=== PATIENT | female | born 1940 | race Caucasian/White ===

== ENCOUNTER 2018-01-20 09:05 | Inpatient (IN) ==
[~2018-01-20 09:05] MED LIST: Bacitracin 50,000 UNIT, Polymyxin B Sulfate 500,000 UNIT, Sodium Chloride IRRigation 1,... IR ONE
[2018-01-20] MEDS ORDERED: Albuterol 2.5 MG/3 ML NEBULIZER IH ONE (09:28)
[2018-01-20] MEDS ORDERED: CeFAZolin Syr 2,000MG/20 ML 2,000 MG/20 ML SYRINGE IVPB ONE (09:28)
[2018-01-20] MEDS ORDERED: Ondansetron 4 MG/2 ML VIAL ONE (09:29)
[2018-01-20] MEDS ORDERED: *HR* Propofol 200 MG/20 ML VIAL IVP ONE (09:29)
[2018-01-20] MEDS ORDERED: *HR* Succinylcholine 200 MG/10 ML VIAL IVP ONE (09:29)
[2018-01-20] MEDS ORDERED: Lidocaine -MPF 2% 2 ML VIAL ONE (09:29)
[2018-01-20] MEDS ORDERED: Dexamethasone 4 MG/ML VIAL ONE (09:29)
[2018-01-20] MEDS ORDERED: Ringers Solution, Lactated 1,000 ML IVC SCH (09:30)
[2018-01-20] MEDS ORDERED: Albuterol 2.5 MG/3 ML NEBULIZER ONE (09:34)
--- NOTE | 2018-01-20 09:34 | Anesthesia Evaluation PreOp ---
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: Other (spondlolisthesis, lumbar stenosis/radiculopathy (LLE affected - pain/numbness/weakness), chronic back [place]) Other Medical History: GERD, Other (osteoporosis) Anesthesia History: No Prior Anesthetic Complications Alcohol Use: none Drug use: none Medications and Allergies Erythromycin OPTH Oint 1 appl LEFT EYE QID 5 Days tube 04/20/17 [Rx] 3 Allergy/AdvReac Type Severity Reaction Status Date / Time No Known Allergies Allergy Verified 01/14/18 13:36 - Meds/Allergy Pre-op Review Medications Reviewed: Yes Allergies Reviewed: Yes Beta Blockers on Current Med List: No Anesthesia Results - Labs Laboratory Tests 01/14/18 01/14/18 01/14/18 13:36 13:36 13:36 WBC 6.6 Hgb 12.6 Hct 39.7 Plt Count 352 PT 11.0 INR 1.0 APTT 30.1 Sodium 140 Potassium Chloride 107 Carbon Dioxide 25 BUN 5 L Creatinine 0.74 Est GFR ( Amer) > 60 Est GFR (Non-Af Amer) > 60 BUN/Creatinine Ratio 7 01/16/18 12:19 WBC Hgb Hct Plt Count PT INR APTT Sodium Potassium 4.6 Chloride Carbon Dioxide BUN Creatinine Est GFR ( Amer) Est GFR (Non-Af Amer) BUN/Creatinine Ratio Anesthesia Exam Weight: 70 kg - HEENT Pupil (Motor): Pupils equal, EOMI Mallampati: III Teeth: Missing, Poor dentition (caps on left upper incisor, etc) Oral Opening: Greater than 3 - [employer] OPERATOR LOC: Oriented [employer] OPERATOR Motor: Deficit LLE [employer]ANT OPERATOR Sensory: Deficit: LLE - Cardiac Rhythm: Regular Murmur: None - Pulmonary Breath Sounds: bilateral Clear Respiratory Effort: Symmetrical Anesthesia Assess/Plan ASA Score: 3 Modified Jackie Scale for Level of Consciousness: Cooperative, oriented, and tranquil Anesthetic Plan: General Monitoring Plan: Standard Monitors Recovery Plan: PACU
[2018-01-20] MEDS ORDERED: 0.9 % Sodium Chloride Mini Bag 200 ML ONE (09:56)
[2018-01-20] MEDS ORDERED: *HR* Remifentanil 2 MG VIAL IVP ONE (10:10)
[2018-01-20] MEDS ORDERED: *HR* Phenylephrine 10 MG/ML VIAL ONE (10:10)
--- NOTE | 2018-01-20 11:02 | History & Physical Report ---
Date of Encounter: 01/20/18 Time of Encounter: 11:02 24 Hour HP Update - Instructions Instructions: If the History and Physical is less than 30 days old and was completed prior to A.M. admission and or procedure and has NOT been updated on calendar day of procedure please complete this update prior to performing procedure. - Update Patient reports changes in Medical Condition: No Changes in examination, assessment, or condition: No Changes in Medication: No Preop tests/diagnostics Reviewed: Yes Pre-Op MRSA Screen: Negative Surgery Remains Indicated: Yes Consent for Planned Operative Procedure(s) Verified: Yes - Pre-Operative Checklist Preoperative Checklist Indicated: No Prophylactic Antibiotic Ordered: Yes Home Medications Include Beta Alan: No Beta Alan Taken Today (Day of Surgery): No Beta Alan Taken Yesterday (Day Prior to Surgery): No Is VTE Prophylaxis Indicated?: Yes
[2018-01-20] MEDS ORDERED: *HR* FentaNYL (PF) 100 MCG/2 ML VIAL ONE (11:22)
[2018-01-20] MEDS ORDERED: *HR* PHENYLEPHRINE 1,000 MCG/10 ML SYRINGE IVP ONE (11:55)
[2018-01-20] MEDS ORDERED: *HR* Promethazine 25 MG/ML VIAL IVP PRN (12:46)
--- NOTE | 2018-01-20 15:05 | Orthopedic Operative Note ---
Date of procedure: 01/20/18 Pre-op diagnosis: Spondylolisthesis, lumbar stenosis, lumbar radiculopathy Post-op diagnosis: same Operation/Findings: Posterior lumbar interbody fusion L3-L5: The patient successfully underwent general endotracheal anesthesia. The patient was given antibiotics prior to the start of the procedure. Compression boots and stockings were used for deep vein thrombosis prophylaxis. A Noriega catheter was placed. Leads for neuro monitoring were placed on the upper and lower extremities. This included the cranium. The neuro monitoring personnel confirmed there were satisfactory readings prior to the start of the procedure. The patient was turned prone on the Wilder table. The back was prepped and draped in the usual sterile fashion. An incision was was marked and centered over the involved L3-L5 levels in the mid line. The incision was deepened through the lumbar fascia. Bovie cautery and Cutler elevators were used to reflect the paraspinal musculature at the lateral extent of the transverse processes of the involved L3 , L4, and L5 levels. Rosemary clamps were placed over the L4 and L5 spinous processes. An intraoperative lateral fluoroscopy graft was obtained. A conversation was held between the surgeon and radiologist and both confirmed we had the correct operative levels. We then placed pedicle screws in standard fashion with the aid of fluoroscopy and anatomic landmarks. Briefly a starter awl was used. A gearshift was subsequently used to enter the commercial pilot hole via a transpedicular route into the vertebral body. The commercial pilot hole was tapped with an undersized instrument, and subsequently five 6.5 x 40 mm pedicle screws were placed bilaterally at L3 and L5 and unilaterally at L4 on the left. We omitted the right L4 screw due to concerns of screw purchase. The screws were tested with the aid of the neurologic monitoring staff via pedicle screw stimulation. All reading suggested there was no significant cortical wall breech. The screws were also evaluated fluoro- graphically and appeared to be in satisfactory position. We then turned our attention to the decompression portion of the procedure. We removed the supraspinous and interspinous ligaments and subsequently the insertion of the ligamentum flavum on the undersurface of the proximal L4 lamina was dislodged with a curette. We then removed the ligamentum flavum as well as undercut the L4-L5 facets at this L4- L5 level to decompress the lateral recesses. We also performed a L4 laminectomy. We then turned our attention to the L3-4 level where we again removed the ligamentum flavum, undercut the L3-4 facets, performed an L3 laminectomy. After the decompression, which was over and above that which was required to place the interbody graft, the foramen and traversing roots at the L3-4 and L4-5 levels were found to be free and patent. We also took part of the medial facets at L3-4 and L4-5 in order to aid in the decompression. We then protected the neural elements including the thecal sac and traversing nerve root on the left at L3-4 with a dural retractor. We made an annulotomy into the L3-L4 disc space and then removed entire disc material using Pituitary instruments. We trialed various size grafts after the L3 and L4 endplates were prepared for graft insertion. A 10 x 26 enter body graft fit well within the L3 -L4 disc space. We obtained some bone from the left posterior superior iliac spine through us a separate incision and combined with this with the bone which we had saved from the laminectomies of L3 and L4 portion of the procedure. This autograft bone was first placed in the anterior portion of the L3-L4 disc space and additional bone was placed within the interbody graft spacer. We then placed the interbody graft spacer obliquely across the disc space towards the midline while protecting the neural elements with a root retractor. When the graft was found to be in satisfactory position the accounts payables clerk was removed. We then copiously irrigated the wound. We then decorticated the L3, L4, and L5 transverse processes as well as the L3-L4 and L4-L5 facet joints of the involved L3-L5 levels to aid in the posterolateral fusion. We placed autograft bone in the lateral gutters over these regions. We then placed rods within the screw heads of the involved L3, L4, and L5 levels and first locked the distal screws and then subsequently locked the proximal screws so as to improve and reduce the spondylolisthesis previously seen. We then closed the wound in layers with 1 Vicryl for the fascia, 2-0 Vicryl. Subcutaneous tissue, and Dermabond was used for skin closure. Sterile dressings were placed over the wound. The patient was turned supine on a hospital bed and extubated. All sponge instruments and needle counts were correct at the end of the procedure. The patient tolerated the procedure well without complications. Anesthesia: GETA Surgeon: Aman Acosta Jr Was there an program support assistant present: No Estimated blood loss (cc): 150 Specimen: None Condition: stable Disposition: PACU
[2018-01-20] MEDS: *HR* HYDROmorphone (PF) 1 MG/ML SYRINGE IVP PRN ×4 (15:20→15:45)
--- NOTE | 2018-01-20 15:49 | Anesthesia Evaluation Post Op ---
Date of Encounter: 01/20/18 Time of Encounter: 15:49 - Vital Signs Vital Signs: Last Vital Signs Temp 97.5 F L 01/20/18 15:14 Pulse 86 01/20/18 15:34 Resp 16 01/20/18 15:34 BP 132/74 01/20/18 15:34 Pulse Ox 96 01/20/18 15:34 - Lungs Lungs: Clear Ascult./Percussion - Airway Airway: Non-obstructed - Cardiovascular Regular Rate - Mental Status Mental Status: Alert & Oriented, Answers Appropriately - Pain Pain Scale: 5 - Nausea Vomiting Nausea Vomiting: Not Present - Hydration Hydration: NPO - Discharge PostOp Status: Transfer Patient to floor
[2018-01-20] MEDS ORDERED: Ondansetron 4 MG/2 ML VIAL IVP PRN (16:33)
[2018-01-20] MEDS ORDERED: Naloxone 0.4 MG/ML INJ IVP PRN (16:33)
[2018-01-20] MEDS ORDERED: CAFFEIN PO PRN (16:33)
[2018-01-20] MEDS ORDERED: Acetaminophen 325 MG TABLET PO PRN (16:33)
[2018-01-20] MEDS ORDERED: CODEINE PO PRN (16:33)
[2018-01-20] MEDS ORDERED: Fluticasone Propionate Nasal 50 MCG/SPRAY BOTTLE NS PRN (16:33)
[2018-01-20] MEDS ORDERED: ASA PO PRN (16:33)
[2018-01-20] MEDS ORDERED: NON-FORMULARY MEDICATION 1 EACH EACH (Ibandronate Sodium [Boniva] 150 MG) PO SCH (16:33)
[2018-01-20] MEDS ORDERED: BUTALBITAL PO PRN (16:33)
[2018-01-20] MEDS ORDERED: CeFAZolin Pre 2,000 MG/100 ML 2,000 MG/100 ML BAG IVPB SCH (18:00)
[2018-01-20] MEDS: VITAMIN D3 PO SCH (19:52)
[2018-01-20] MEDS: CALCIUM CARBONATE PO SCH (19:52)
[2018-01-20] MEDS: *HR* HYDROcodone/Acet 5/325 mg TABLET PO PRN (20:54)
[2018-01-20] MEDS: CeFAZolin Pre 2,000 MG/100 ML 2,000 MG/100 ML BAG IVPB SCH (20:55)
[2018-01-20] MEDS: Ipratropium 1 PUFF INHALER IH SCH (21:34)
[2018-01-21] MEDS: *HR* OxyCODONE Immed Rel 5 MG TABLET PO PRN ×5 (00:37→20:33)
[2018-01-21] MEDS: Ringers Solution, Lactated 1,000 ML IVC SCH ×3 (00:41→14:56)
[2018-01-21] MEDS: CeFAZolin Pre 2,000 MG/100 ML 2,000 MG/100 ML BAG IVPB SCH (04:45)
[2018-01-21] MEDS: diazePAM 10 MG TABLET PO PRN ×2 (07:31→18:47)
[2018-01-21] MEDS: Multivit/Ca/Min/Fe/FA 1 TAB TABLET PO SCH (07:32)
[2018-01-21] MEDS: Aspirin 325 MG TABLET PO SCH (07:32)
[2018-01-21] MEDS: BuPROPion SR (12 HR) 150 MG TABLET PO SCH (07:32)
[2018-01-21] MEDS: VITAMIN D3 PO SCH ×3 (07:33→20:34)
[2018-01-21] MEDS: CALCIUM CARBONATE PO SCH ×3 (07:33→20:34)
[2018-01-21] MEDS: *HR* HYDROcodone/Acet 5/325 mg TABLET PO PRN ×2 (09:02→15:03)
[2018-01-21] MEDS: Ipratropium 1 PUFF INHALER IH SCH ×2 (11:33→23:11)
--- NOTE | 2018-01-21 18:38 | Orthopedics Progress Note ---
Date of Encounter: 01/21/18 Time of Encounter: 09:25 - Assessment and Plan (1) Status post lumbar spinal fusion Current Visit: Yes Status: Acute (2) Spondylolisthesis Current Visit: Yes Status: Chronic Qualifiers: Spinal region: lumbar Qualified Code(s): M43.16 - Spondylolisthesis, lumbar region (3) Lumbar stenosis Current Visit: Yes Status: Chronic Qualifiers: Neurogenic claudication status: unspecified Qualified Code(s): M48.061 - Spinal stenosis, lumbar region without neurogenic claudication (4) Focal motor deficit Current Visit: Yes Status: Chronic Subjective Principal diagnosis: Spondylolisthesis L3-4, lumbar stenosis, focal motor deficit Interval history: Patient is postoperative day #1 of Posterior lumbar interbody fusion L3-L5 performed on 01/20/[address] Acosta for Spondylolisthesis, lumbar stenosis, lumbar radiculopathy The patient is without complaints. Afebrile vital signs are stable. Incision is clean dry and intact. Neurovascularly intact with regard to bilateral lower extremities. Fires all upper and lower extremity motor groups. Focal motor deficit appears to be resolved at this time. Assessment: Stable postoperative. Plan: Reviewed postoperative restrictions and precautions. Patient verbalized understanding. Brace present in room and patient aware to apply with activity. Mobilize with therapy Continue analgesics as needed Discharge planning - awaiting therapy recommendations Radiographs pending Objective Vital signs: Vital Signs Temp Pulse Resp BP Pulse Ox 01/21/18 15:18 95 01/21/18 14:18 98.5 F 81 16 123/76 96 01/21/18 11:33 18 95 01/21/18 10:19 98.4 F 76 18 128/76 95 01/21/18 07:46 96 01/21/18 07:00 98.7 F 84 16 124/78 96 01/21/18 03:01 98.4 F 86 18 111/54 94 01/20/18 22:09 98.4 F 85 16 107/67 96 01/20/18 21:34 18 93 Intake and Output 01/21/18 01/21/18 01/21/18 07:59 15:59 23:59 Intake Total 0 / 0 1200 / 1200 Output Total 400 / 400 200 / 200 Balance -400 / -400 1000 / 1000 Intake: IV Fluids 1000 / 1000 Lactated Ringers 1,000 ML @ 100 1000 / 1000 mls/hr IVC .Q10H ALEKSANDAR Rx#: [id number] Oral 0 / 0 200 / 200 Output: Urine 200 / 200 Catheter 400 / 400 Other: Meal Breakfast Percent of Meal Consumed 50% # Urine Diapers 1 - VTE Documentation of Mechanical Device: Intermittent pneumatic compression device Consult Discharge Plan - Plan Referrals: Ashvin Zambrano MD [Primary Care Provider] -
[2018-01-22] MEDS: diazePAM 10 MG TABLET PO PRN ×2 (00:21→08:45)
[2018-01-22] MEDS: *HR* OxyCODONE Immed Rel 5 MG TABLET PO PRN ×5 (01:03→20:21)
[2018-01-22] MEDS: Ipratropium 1 PUFF INHALER IH SCH ×2 (08:03→21:12)
[2018-01-22] MEDS: BuPROPion SR (12 HR) 150 MG TABLET PO SCH (08:45)
[2018-01-22] MEDS: Aspirin 325 MG TABLET PO SCH (08:45)
[2018-01-22] MEDS: VITAMIN D3 PO SCH ×3 (08:46→20:22)
[2018-01-22] MEDS: Multivit/Ca/Min/Fe/FA 1 TAB TABLET PO SCH (08:46)
[2018-01-22] MEDS: CALCIUM CARBONATE PO SCH ×3 (08:46→20:22)
--- NOTE | 2018-01-22 09:15 | Orthopedics Progress Note ---
Date of Encounter: 01/22/18 Time of Encounter: 09:15 - Assessment and Plan (1) Status post lumbar spinal fusion Current Visit: Yes Status: Acute (2) Spondylolisthesis Current Visit: Yes Status: Chronic Qualifiers: Spinal region: lumbar Qualified Code(s): M43.16 - Spondylolisthesis, lumbar region (3) Lumbar stenosis Current Visit: Yes Status: Chronic Qualifiers: Neurogenic claudication status: unspecified Qualified Code(s): M48.061 - Spinal stenosis, lumbar region without neurogenic claudication (4) Focal motor deficit Current Visit: Yes Status: Chronic Subjective Principal diagnosis: Spondylolisthesis L3-4, lumbar stenosis, focal motor deficit Interval history: Patient is postoperative day #1 of Posterior lumbar interbody fusion L3-L5 performed on 01/20/[address] Acosta for Spondylolisthesis, lumbar stenosis, lumbar radiculopathy The patient is without complaints. Afebrile vital signs are stable. Incision is clean dry and intact. Neurovascularly intact with regard to bilateral lower extremities. Fires all upper and lower extremity motor groups. Focal motor deficit appears to be resolved at this time. Assessment: Stable postoperative. Plan: Reviewed postoperative restrictions and precautions. Patient verbalized understanding. Discussed appropriate medication use. Patient states that at home her medications arrange cemented in order. Encouraged her to bring in home medication list to review with nursing staff. Brace present in room and patient aware to apply with activity. Mobilize with therapy Continue analgesics as needed Discharge planning -4 winds tomorrow Radiographs pending Objective Vital signs: Vital Signs Temp Pulse Resp BP Pulse Ox 01/22/18 08:08 16 95 01/22/18 06:50 98.7 F 98 16 118/53 95 01/22/18 04:11 98.9 F 108 18 115/56 93 01/21/18 23:11 18 94 01/21/18 23:05 99.0 F 100 22 137/69 93 01/21/18 18:52 99.5 F 104 20 127/65 93 01/21/18 15:18 95 01/21/18 14:18 98.5 F 81 16 123/76 96 01/21/18 11:33 18 95 01/21/18 10:19 98.4 F 76 18 128/76 95 Intake and Output 01/21/18 01/22/18 01/22/18 23:59 07:59 15:59 Intake Total 150 / 150 0 / 0 Output Total 375 / 375 0 / 0 Balance -225 / -225 0 / 0 Intake: Oral 150 / 150 0 / 0 Output: Urine 375 / 375 0 / 0 Other: # Voids 1 1 - VTE Documentation of Mechanical Device: Intermittent pneumatic compression device Consult Discharge Plan - Plan Referrals: Ashvin Zambrano MD [Primary Care Provider] -
[2018-01-23] MEDS: *HR* OxyCODONE Immed Rel 5 MG TABLET PO PRN ×3 (06:21→21:44)
[2018-01-23] MEDS ORDERED: Ipratropium/Albuterol Neb 3 ML IH ONE (07:35)
[2018-01-23] MEDS: Ipratropium/Albuterol Neb 3 ML IH PRN ×2 (07:40→16:11)
[2018-01-23] MEDS: BuPROPion SR (12 HR) 150 MG TABLET PO SCH (09:15)
[2018-01-23] MEDS: Aspirin 325 MG TABLET PO SCH (09:15)
[2018-01-23] MEDS: CALCIUM CARBONATE PO SCH ×3 (09:16→21:44)
[2018-01-23] MEDS: VITAMIN D3 PO SCH ×3 (09:16→21:44)
[2018-01-23] MEDS: Multivit/Ca/Min/Fe/FA 1 TAB TABLET PO SCH (09:16)
[2018-01-23 10:21] LABS: Basophils # 0.1 K/mcL (0.0-0.2); Basophils % 0.5 %; Eosinophils # 0.1 K/mcL (0.0-0.6); Eosinophils % 1.1 %; Hematocrit 28.3 % (35.3-44.9); Hemoglobin 9.5 g/dL (11.5-15.4); Immature Granulocytes % 0.6 % (0-4); Lymphocytes # 1.5 K/mcL (0.6-4.6); Lymphocytes % 14.7 %; Mean Corpuscular HGB Conc 33.6 g/dL (31.6-35.5); Mean Corpuscular Hemoglobin 32.5 pg (28.0-33.3); Mean Corpuscular Volume 96.9 fL (83.0-100.0); Mean Platelet Volume 9.2 fL (9.4-12.4); Monocytes # 0.7 K/mcL (0.0-1.3); Neutrophils # 7.7 K/mcL (1.6-8.9); Platelet Count 251 K/mcL (140-400); Red Blood Count 2.92 M/mcL (3.82-4.97); Red Cell Distribution Width 14.3 % (11.5-14.5); Segmented Neutrophils % 76.1 %
[2018-01-23 11:22] LABS: BUN/Creatinine Ratio 13 (6-26); Blood Urea Nitrogen 7 mg/dL (8-23); Calcium 8.5 mg/dL (8.6-10.3); Carbon Dioxide 26 mEq/L (23-29); Chloride 108 mEq/L (98-107); Glucose 122 mg/dL (70-105); Osmolality,Calculated 291 (280-300); Potassium 4.3 mEq/L (3.5-5.1); Sodium 141 mEq/L (136-145); eGFR For African Americans > 60 (> 60); eGFR For Non-African Americans > 60 (> 60)
[2018-01-23] MEDS: Ipratropium 1 PUFF INHALER IH SCH ×2 (11:43→19:51)
--- NOTE | 2018-01-23 16:42 | Orthopedics Progress Note ---
Date of Encounter: 01/23/18 Time of Encounter: 09:30 - Assessment and Plan (1) Status post lumbar spinal fusion Current Visit: Yes Status: Acute (2) Spondylolisthesis Current Visit: Yes Status: Chronic Qualifiers: Spinal region: lumbar Qualified Code(s): M43.16 - Spondylolisthesis, lumbar region (3) Lumbar stenosis Current Visit: Yes Status: Chronic Qualifiers: Neurogenic claudication status: unspecified Qualified Code(s): M48.061 - Spinal stenosis, lumbar region without neurogenic claudication (4) Focal motor deficit Current Visit: Yes Status: Chronic Subjective Principal diagnosis: Spondylolisthesis L3-4, lumbar stenosis, focal motor deficit Interval history: Patient is postoperative day #1 of Posterior lumbar interbody fusion L3-L5 performed on 01/20/[address] Acosta for Spondylolisthesis, lumbar stenosis, lumbar radiculopathy The patient is without complaints. Afebrile vital signs not stable. She has developed hypoxemia with continuous drops in SPO2 with oxygen weaning. She is now dependent on 3 L at all times nasal cannula. Patient's breathing appears more labored from previous examinations. Incision is clean dry and intact. Neurovascularly intact with regard to bilateral lower extremities. Fires all upper and lower extremity motor groups. Focal motor deficit appears to be resolved at this time. Assessment: Stable postoperative. Plan: Reviewed postoperative restrictions and precautions. Patient verbalized understanding. Discussed appropriate medication use. Brace present in room and patient aware to apply with activity. Mobilize with therapy Continue analgesics as needed Laboratory and vital signs reviewed. Discharge planning 4 winds planned for today however given patient's respiratory decompensation we will consult hospitalist for further evaluation with concern for pulmonary vascular congestion versus developing pneumonia versus other cardiopulmonary processes. Radiographs reviewed. Lumbar spine appears no acute changes compared with postoperative films. Objective Vital signs: Vital Signs Temp Pulse Resp BP Pulse Ox 01/23/18 16:14 18 90 01/23/18 10:24 98.4 F 98 16 104/55 94 01/23/18 07:40 18 93 01/23/18 06:44 98.9 F 108 16 118/67 93 01/23/18 00:49 99.5 F 104 12 111/71 92 01/22/18 21:14 16 95 01/22/18 18:55 99.3 F 108 18 117/71 94 Intake and Output 01/23/18 01/23/18 01/23/18 07:59 15:59 23:59 Intake Total 350 / 350 1070 / 1070 Output Total 600 / 600 Balance 350 / 350 470 / 470 Intake: Oral 350 / 350 1070 / 1070 Output: Urine 600 / 600 Other: Meal Lunch Percent of Meal Consumed 50% - Labs CBC & BMP: 01/23/18 09:52 05 09:52 Labs: Abnormal lab results RBC 2.92 M/mcL (3.82-4.97) L 01/23/18 09:52 Hgb 9.5 g/dL (11.5-15.4) L 01/23/18 09:52 Hct 28.3 % (35.3-44.9) L 01/23/18 09:52 MPV 9.2 fL (9.4-12.4) L 01/23/18 09:52 Chloride 108 mEq/L (98-107) H 01/23/18 09:52 BUN 7 mg/dL (8-23) L 01/23/18 09:52 Creatinine 0.55 mg/dL (0.60-1.20) L 01/23/18 09:52 Glucose 122 mg/dL (70-105) H 01/23/18 09:52 Calcium 8.5 mg/dL (8.6-10.3) L 01/23/18 09:52 B-Natriuretic Peptide 105 pg/mL (Less than 100) H 01/23/18 09:52 - VTE Documentation of Mechanical Device: Venous foot pump, device Consult Discharge Plan - Plan Referrals: Ashvin Zambrano MD [Primary Care Provider] -
[2018-01-23] MEDS ORDERED: Isovue-370 500 ML INFUS..BTL IV ONE ×2 (17:05→17:17)
[2018-01-23] MEDS ORDERED: Furosemide 40 MG/4 ML VIAL IVP ONE (17:05)
--- NOTE | 2018-01-23 17:12 | Internal Medicine Consult Note ---
Date of Encounter: 01/23/18 Time of Encounter: 17:07 - Assessment and plan (1) Acute respiratory failure with hypoxia Current Visit: Yes Status: Acute Assessment and plan: Patient has been receiving fluids till yesterday. Has crackles on exam. Has findings of vascular congestion on CXR. Will give a dose of lasix 40 mg IV. Will rule out PE with CTA chest. Check EKG and a set of trop. Encourage IS. History of COPD not on home O2 and patient is not wheezing. Wean down O2 as tolerated (2) Acute blood loss anemia Current Visit: Yes Status: Acute Assessment and plan: Hgb 9.5 today compared to around 12 previously. This is expected post op. Unlikely to be cause of significant hypoxia. will monitor. (3) COPD (chronic obstructive pulmonary disease) Current Visit: Yes Status: Acute Assessment and plan: Not in exacerbation. c/w current inhalers. Qualifiers: COPD type: emphysema Emphysema type: unspecified Qualified Code(s): J43.9 - Emphysema, unspecified (4) Status post lumbar spinal fusion Current Visit: Yes Status: Acute Assessment and plan: s/p Posterior lumbar interbody fusion L3-L5 on 01/20. pain control. management per primary (5) DVT prophylaxis Current Visit: Yes Status: Acute Assessment and plan: will add heparin SQ - Time Spent With Patient Total time spent is greater than 50% in coordination of care (as documented) at patient's floor/unit and/or counseling patient: Internal Medicine - CN: HPI - Data of Consult Patient: new to practice Requesting Physician: Aman Acosta Jr MD - Consult Narrative Reason for consult: Hypoxia History of present illness: Ms. Douglas is a 77 year old female with history of COPD not on home oxygen, tension headache, depression, GERD, tobacco abuse who were asked to see by the orthopedics group for hypoxia. The patient was admitted to them on 01/20 and underwent posterior lumbar interbody fusion L3/L5. Postoperatively her stay has been complicated by persistent O2 need via nasal cannula. The patient at home is not O2 dependent. She has been satting in the 80s whenever they try to wean her down. She reports dyspnea on exertion. Reports cough that is nonproductive. No chest pain. Denies headache, blurry vision, nausea, vomiting , chest pain, abdominal pain, diarrhea, constipation, urinary symptoms, or neurological symptoms. Patient had a chest x-ray that showed some vascular congestion earlier today. The patient was on fluids up until yesterday. Past Med Surg Social Fam HX - Past Medical History Medical history: COPD, GERD, osteoporosis Psychiatric history: no psych history - Past Surgical History Surgical History: appendectomy, cataract, cholecystectomy, knee replacement - Social History Smoking Status: Current every day smoker Packs per day: 1 Smokeless Tobacco Status: No Alcohol use: rarely Drug use: none - Family History Father Hx Family Medical Disorders: Yes (aortic aneurysm) Review of systems: All systems reviewed are negative except as mentioned above Internal Medicine - CN: Meds Albuterol Sulfate [Albuterol Inhaler] 2 puff IH Q4HR PRN 01/20/18 [History] Aspirin 325 mg PO DAILY 01/20/18 [History] BuPROPion SR (12 HR) [Wellbutrin SR] 150 mg PO DAILY 01/20/18 [History] Calcium Carbonate/Vitamin D3 [Calcium 500 + Vit D Caplet] 1 tab PO TID 01/20/18 [History] Codeine/Butalbital/ASA/Caffein [Fiorinal with Codeine #3 Cap] 1 cap PO TID PRN 01/20/18 [History] Fluticasone Propionate Nasal [Flonase] 2 spr NS DAILY PRN 01/20/18 [History] Gabapentin [Neurontin] 600 mg PO TID 01/20/18 [History] HYDROcodone/Acet 5/325 mg [[place] 5-325 mg] 1 tab PO Q6H PRN 01/20/18 [History] Ibandronate Sodium [Boniva] 150 mg PO QMONTH 01/20/18 [History] Ipratropium [Atrovent Inhaler] 2 puff IH BID 01/20/18 [History] Ipratropium/Albuterol Neb [Duoneb] 3 ml IH Q6HR PRN 01/20/18 [History] Montelukast [Singulair] 10 mg PO HS 01/20/18 [History] Multivitamin [One Daily Multivitamin] 1 tab PO DAILY 01/20/18 [History] Nabumetone [Relafen] 500 mg PO BID 01/20/18 [History] Pantoprazole Sodium [Protonix] 40 mg PO DAILY 01/20/18 [History] Sertraline [Zoloft] 100 mg PO DAILY 01/20/18 [History] diazePAM [Valium] 10 mg PO TID PRN 01/20/18 [History] 3 Allergy/AdvReac Type Severity Reaction Status Date / Time No Known Allergies Allergy Verified 01/20/18 10:11 Internal Medicine - CN: Exam - Constitutional Vitals: Temp Pulse Resp BP Pulse Ox 98.4 F 98 18 104/55 90 01/23/18 10:24 01/23/18 10:24 01/23/18 16:14 01/23/18 10:24 01/23/18 16:14 Exam: GEN: NAD HEENT: AT, NC, No cyanosis, oral mucosa is moist, No JVD Lymphatics: No lymphadenoapthy Eyes: Extrocular muscles intact, anicteric CVS:RRR. S1, S2, No m/r/g RESP: Diminished with scattered crackles ABD: Soft, NT, ND, +BS EXT: No edema, No rashes, 2+ DP NEURO: Nonfocal, CN II-XII intact, No focal motor or sensory deficits Psych: Cooperative, Not anxious or depressed Internal Medicine - CN: Reslt - Labs CBC & Chem 7: 01/23/18 09:52 01/23/18 09:52 Labs: Short CBC 01/23/18 Range/Units 09:52 WBC 10.1 (4.3-11.1) K/mcL Hgb 9.5 L (11.5-15.4) g/dL Hct 28.3 L (35.3-44.9) % Plt Count 251 (140-400) K/mcL Neutrophils # 7.7 (1.6-8.9) K/mcL BMP 01/23/18 09:52 Sodium 141 Potassium 4.3 Chloride 108 H Carbon Dioxide 26 BUN 7 L Creatinine 0.55 L Glucose 122 H Calcium 8.5 L - Impressions Impressions Chest X-Ray 01/22/18 17:47 IMPRESSION: Trace bilateral pleural effusions and left basilar atelectasis. D/ / Shahida Herrera MD / Shahida Herrera MD Interpreting Provider: Shahida Herrera MD Chest X-Ray 01/23/18 07:35 IMPRESSION: Findings most compatible with mild interstitial pulmonary edema and mild pulmonary vascular congestion suggesting mild congestive heart failure and/or volume overload. D/ / Car Benavidez MD / Car Benavidez MD Interpreting Provider: Car Benavidez MD Lumbar Spine X-Ray 01/23/18 08:06 IMPRESSION: Status post L3-L5 posterior fusion with bilateral pedicle screws. Stable alignment. No hardware complications. No acute abnormalities are identified. D/ / 01/23/2018 15:22:53 Kai Ramos MD / monster Interpreting Provider: Kai Ramos MD Consult Discharge Plan - Plan Referrals: Ashvin Zambrano MD [Primary Care Provider] -
[2018-01-23] MEDS: Gabapentin 300 MG CAPSULE PO SCH (21:44)
[2018-01-23] MEDS: *HR* Heparin 5,000 UNIT/ML VIAL SQ SCH (21:45)
[2018-01-24 00:58] LABS: Basophils % 0.4 %; Eosinophils # 0.1 K/mcL (0.0-0.6); Eosinophils % 1.5 %; Hematocrit 25.7 % (35.3-44.9); Hemoglobin 8.7 g/dL (11.5-15.4); Immature Granulocytes % 0.5 % (0-4); Lymphocytes # 1.7 K/mcL (0.6-4.6); Lymphocytes % 17.7 %; Mean Corpuscular HGB Conc 33.9 g/dL (31.6-35.5); Mean Corpuscular Hemoglobin 32.5 pg (28.0-33.3); Mean Corpuscular Volume 95.9 fL (83.0-100.0); Mean Platelet Volume 9.1 fL (9.4-12.4); Monocytes # 0.7 K/mcL (0.0-1.3); Monocytes % 7.9 %; Neutrophils # 6.7 K/mcL (1.6-8.9); Platelet Count 234 K/mcL (140-400); Red Blood Count 2.68 M/mcL (3.82-4.97); Red Cell Distribution Width 14.2 % (11.5-14.5)
[2018-01-24 01:17] LABS: BUN/Creatinine Ratio 17 (6-26); Blood Urea Nitrogen 9 mg/dL (8-23); Calcium 8.2 mg/dL (8.6-10.3); Carbon Dioxide 26 mEq/L (23-29); Chloride 105 mEq/L (98-107); Glucose 131 mg/dL (70-105); Magnesium 1.9 mg/dL (1.6-2.6); Osmolality,Calculated 286 (280-300); Potassium 3.3 mEq/L (3.5-5.1); Sodium 138 mEq/L (136-145); eGFR For African Americans > 60 (> 60); eGFR For Non-African Americans > 60 (> 60)
[2018-01-24] MEDS: *HR* OxyCODONE Immed Rel 5 MG TABLET PO PRN ×2 (05:32→21:37)
[2018-01-24] MEDS: *HR* Heparin 5,000 UNIT/ML VIAL SQ SCH ×3 (05:32→21:26)
[2018-01-24] MEDS: Ipratropium 1 PUFF INHALER IH SCH (08:40)
[2018-01-24] MEDS: Gabapentin 300 MG CAPSULE PO SCH ×3 (09:44→20:40)
[2018-01-24] MEDS: Aspirin 325 MG TABLET PO SCH (09:45)
[2018-01-24] MEDS: Multivit/Ca/Min/Fe/FA 1 TAB TABLET PO SCH (09:45)
[2018-01-24] MEDS: CALCIUM CARBONATE PO SCH (09:45)
[2018-01-24] MEDS: VITAMIN D3 PO SCH (09:45)
[2018-01-24] MEDS: BuPROPion SR (12 HR) 150 MG TABLET PO SCH (09:45)
--- NOTE | 2018-01-24 10:22 | Internal Med Progress Note ---
Date of Encounter: 01/24/18 Time of Encounter: 09:45 - Assessment and plan (1) Status post lumbar spinal fusion Current Visit: Yes Status: Acute Assessment and plan: s/p Posterior lumbar interbody fusion L3-L5 on 01/20. pain control. management per primary (2) Acute blood loss anemia Current Visit: Yes Status: Acute Assessment and plan: Stable. (3) Acute respiratory failure with hypoxia Current Visit: Yes Status: Acute Assessment and plan: CTA chest ruled out PE. Bilateral upper lobe interstitial infiltrates are noted which could be pulmonary edema versus infection. IV fluids were stopped but she is hypotensive now. She may have chronic hypoxemia from COPD unmasked by this procedure. Some atelectasis is also noted. Plan - Incentive spirometry - Out of bed to chair - I was able to wean to room air at rest. Likely needs oxygen on exertion. - Hypotension limits ability to diurese - Nebulized bronchodilators (4) COPD (chronic obstructive pulmonary disease) Current Visit: Yes Status: Acute Assessment and plan: Not in exacerbation. c/w current therapy. Qualifiers: COPD type: emphysema Emphysema type: unspecified Qualified Code(s): J43.9 - Emphysema, unspecified (5) DVT prophylaxis Current Visit: Yes Status: Acute Assessment and plan: will add heparin SQ - Time Spent With Patient Total time spent is greater than 50% in coordination of care (as documented) at patient's floor/unit and/or counseling patient: 25 - 35 minutes - Subjective Interval history: She reports no new complaints. She is sitting a chair and is comfortable. Her cough persists but is dry. She states this is chronic. Still continues to smoke prior to admission. - Constitutional Vitals: Temp Pulse Resp BP Pulse Ox 98.4 F 89 18 91/52 91 01/24/18 07:07 01/24/18 07:07 01/24/18 08:42 01/24/18 07:07 01/24/18 08:42 Exam: Physical exam Gen: Comfortable, laying in bed, in no visible distress HEENT: Normocephalic, atraumatic. No conjunctival icterus. Moist oral mucosa. Neck: Supple Lungs: Diminished to auscultation, no foreign sounds Heart: Normal S1-S2, no murmurs rubs or gallops Abdomen: Normoactive bowel sounds, no guarding rigidity or tenderness Extremities: No edema clubbing or cyanosis Neuro: Alert oriented 3, no focal deficits Skin: No skin lesions Internal Medicine: Result - Labs CBC & Chem 7: 01/24/18 00:34 01/24/18 00:34 Labs: Short CBC 01/23/18 01/23/18 01/23/18 Range/Units 09:52 09:52 09:52 WBC 10.1 (4.3-11.1) K/mcL RBC 2.92 L (3.82-4.97) M/mcL Hgb 9.5 L (11.5-15.4) g/dL Hct 28.3 L (35.3-44.9) % MCV 96.9 (83.0-100.0) fL MCH 32.5 (28.0-33.3) pg MCHC 33.6 (31.6-35.5) g/dL RDW 14.3 (11.5-14.5) % Plt Count 251 (140-400) K/mcL MPV 9.2 L (9.4-12.4) fL Immature Gran % 0.6 (0-4) % Seg Neutrophils % 76.1 % Lymphocytes % 14.7 % Monocytes % 7.0 % Eosinophils % 1.1 % Basophils % 0.5 % Neutrophils # 7.7 (1.6-8.9) K/mcL Lymphocytes # 1.5 (0.6-4.6) K/mcL Monocytes # 0.7 (0.0-1.3) K/mcL Eosinophils # 0.1 (0.0-0.6) K/mcL Basophils # 0.1 (0.0-0.2) K/mcL Sodium 141 (136-145) mEq/L Potassium 4.3 (3.5-5.1) mEq/L Chloride 108 H (98-107) mEq/L Carbon Dioxide 26 (23-29) mEq/L BUN 7 L (8-23) mg/dL Creatinine 0.55 L (0.60-1.20) mg/dL Est GFR ( Amer) > 60 (> 60) Est GFR (Non-Af Amer) > 60 (> 60) BUN/Creatinine Ratio 13 (6-26) Glucose 122 H (70-105) mg/dL Calculated Osmolality 291 (280-300) Calcium 8.5 L (8.6-10.3) mg/dL Magnesium (1.6-2.6) mg/dL Troponin I (< 0.04) ng/mL B-Natriuretic Peptide 105 H (Less than 100) pg/mL 01/23/18 01/24/18 01/24/18 Range/Units 17:22 00:34 00:34 WBC 9.3 (4.3-11.1) K/mcL RBC 2.68 L (3.82-4.97) M/mcL Hgb 8.7 L (11.5-15.4) g/dL Hct 25.7 L (35.3-44.9) % MCV 95.9 (83.0-100.0) fL MCH 32.5 (28.0-33.3) pg MCHC 33.9 (31.6-35.5) g/dL RDW 14.2 (11.5-14.5) % Plt Count 234 (140-400) K/mcL MPV 9.1 L (9.4-12.4) fL Immature Gran % 0.5 (0-4) % Seg Neutrophils % 72.0 % Lymphocytes % 17.7 % Monocytes % 7.9 % Eosinophils % 1.5 % Basophils % 0.4 % Neutrophils # 6.7 (1.6-8.9) K/mcL Lymphocytes # 1.7 (0.6-4.6) K/mcL Monocytes # 0.7 (0.0-1.3) K/mcL Eosinophils # 0.1 (0.0-0.6) K/mcL Basophils # 0.0 (0.0-0.2) K/mcL Sodium 138 (136-145) mEq/L Potassium 3.3 L (3.5-5.1) mEq/L Chloride 105 (98-107) mEq/L Carbon Dioxide 26 (23-29) mEq/L BUN 9 (8-23) mg/dL Creatinine 0.52 L (0.60-1.20) mg/dL Est GFR ( Amer) > 60 (> 60) Est GFR (Non-Af Amer) > 60 (> 60) BUN/Creatinine Ratio 17 (6-26) Glucose 131 H (70-105) mg/dL Calculated Osmolality 286 (280-300) Calcium 8.2 L (8.6-10.3) mg/dL Magnesium 1.9 (1.6-2.6) mg/dL Troponin I < 0.03 (< 0.04) ng/mL B-Natriuretic Peptide (Less than 100) pg/mL BMP 01/23/18 01/24/18 09:52 00:34 Sodium 141 138 Potassium 4.3 3.3 L Chloride 108 H 105 Carbon Dioxide 26 26 BUN 7 L 9 Creatinine 0.55 L 0.52 L Glucose 122 H 131 H Calcium 8.5 L 8.2 L Cardiac Enzymes 01/23/18 Range/Units 17:22 Troponin I < 0.03 (< 0.04) ng/mL - Impressions Impressions Lumbar Spine X-Ray 01/23/18 08:06 IMPRESSION: Status post L3-L5 posterior fusion with bilateral pedicle screws. Stable alignment. No hardware complications. No acute abnormalities are identified. D/ / 01/23/2018 15:22:53 Kai Ramos MD / monster Interpreting Provider: Kai Ramos MD Chest CTA 01/23/18 17:17 IMPRESSION: 1. No CT evidence of pulmonary embolism or aortic dissection. 2. Interstitial and alveolar parenchymal infiltrates in the posterior segment of bilateral upper lobe. Inflammatory or infectious process should be considered. 3. Chronic obstructive lung disease. 4. Bilateral pulmonary basilar atelectasis and bilateral small effusions. Pulmonary vascular congestion. D/ / Nevaeh Partida MD / Nevaeh Partida MD Interpreting Provider: Nevaeh Partida MD - VTE Documentation of Mechanical Device: Intermittent pneumatic compression device Consult Discharge Plan - Plan Referrals: Ashvin Zambrano MD [Primary Care Provider] -
[2018-01-24] MEDS: Ipratropium/Albuterol Neb 3 ML IH SCH ×4 (11:38→23:39)
[2018-01-24] MEDS: Cholecalciferol (D-3) 1,000 UNIT TABLET PO SCH (15:40)
[2018-01-24] MEDS: Ringers Solution, Lactated 1,000 ML IVC SCH ×2 (19:06→19:07)
[2018-01-25] MEDS: Ipratropium/Albuterol Neb 3 ML IH SCH ×4 (04:23→15:56)
[2018-01-25] MEDS: *HR* Heparin 5,000 UNIT/ML VIAL SQ SCH ×2 (06:17→14:27)
[2018-01-25 07:09] LABS: Basophils % 0.6 %; Eosinophils # 0.3 K/mcL (0.0-0.6); Eosinophils % 3.7 %; Hematocrit 26.3 % (35.3-44.9); Hemoglobin 8.5 g/dL (11.5-15.4); Immature Granulocytes % 0.3 % (0-4); Lymphocytes # 1.5 K/mcL (0.6-4.6); Lymphocytes % 21.5 %; Mean Corpuscular HGB Conc 32.3 g/dL (31.6-35.5); Mean Corpuscular Hemoglobin 32.3 pg (28.0-33.3); Mean Platelet Volume 9.2 fL (9.4-12.4); Monocytes # 0.6 K/mcL (0.0-1.3); Monocytes % 8.5 %; Neutrophils # 4.5 K/mcL (1.6-8.9); Platelet Count 273 K/mcL (140-400); Red Blood Count 2.63 M/mcL (3.82-4.97); Red Cell Distribution Width 14.4 % (11.5-14.5); Segmented Neutrophils % 65.4 %
[2018-01-25 07:50] LABS: BUN/Creatinine Ratio 20 (6-26); Blood Urea Nitrogen 13 mg/dL (8-23); Calcium 8.7 mg/dL (8.6-10.3); Carbon Dioxide 27 mEq/L (23-29); Chloride 108 mEq/L (98-107); Glucose 110 mg/dL (70-105); Osmolality,Calculated 297 (280-300); Potassium 4.4 mEq/L (3.5-5.1); Sodium 143 mEq/L (136-145); eGFR For African Americans > 60 (> 60); eGFR For Non-African Americans > 60 (> 60)
[2018-01-25] MEDS: Cholecalciferol (D-3) 1,000 UNIT TABLET PO SCH (08:44)
[2018-01-25] MEDS: Gabapentin 300 MG CAPSULE PO SCH ×2 (08:44→14:28)
[2018-01-25] MEDS: BuPROPion SR (12 HR) 150 MG TABLET PO SCH (08:44)
[2018-01-25] MEDS: Aspirin 325 MG TABLET PO SCH (08:44)
[2018-01-25] MEDS: Multivit/Ca/Min/Fe/FA 1 TAB TABLET PO SCH (08:45)
[2018-01-25] MEDS: *HR* OxyCODONE Immed Rel 5 MG TABLET PO PRN ×2 (08:45→14:33)
[2018-01-25 11:27] VITALS: BP 109/64
--- NOTE | 2018-01-25 13:51 | Internal Med Progress Note ---
Date of Encounter: 01/25/18 Time of Encounter: 13:50 - Assessment and plan (1) Status post lumbar spinal fusion Current Visit: Yes Status: Acute Assessment and plan: s/p Posterior lumbar interbody fusion L3-L5 on 01/20. pain control. management per primary (2) Acute blood loss anemia Current Visit: Yes Status: Acute Assessment and plan: Stable. (3) Acute respiratory failure with hypoxia Current Visit: Yes Status: Acute Assessment and plan: CTA chest ruled out PE. Bilateral upper lobe interstitial infiltrates are noted which could be pulmonary edema versus infection. IV fluids were stopped but she is hypotensive now. She may have chronic hypoxemia from COPD unmasked by this procedure. Some atelectasis is also noted. Plan - Incentive spirometry - Out of bed to chair - Now on room air at rest. Likely needs oxygen on exertion. - Hypotension limits ability to diurese - Nebulized bronchodilators - Outpatient pulmonary follow-up (4) COPD (chronic obstructive pulmonary disease) Current Visit: Yes Status: Acute Assessment and plan: Not in exacerbation. c/w current therapy. Qualifiers: COPD type: emphysema Emphysema type: unspecified Qualified Code(s): J43.9 - Emphysema, unspecified (5) DVT prophylaxis Current Visit: Yes Status: Acute Assessment and plan: will add heparin SQ - Time Spent With Patient Total time spent is greater than 50% in coordination of care (as documented) at patient's floor/unit and/or counseling patient: 25 - 35 minutes (Rehabilitation early this week) - Subjective Interval history: Working with physical therapy. She is off oxygen. - Constitutional Vitals: Temp Pulse Resp BP Pulse Ox 98.3 F 95 18 109/64 88 01/25/18 10:29 01/25/18 10:29 01/25/18 11:09 01/25/18 10:29 01/25/18 11:09 Exam: Physical exam Gen: Comfortable, laying in bed, in no visible distress HEENT: Normocephalic, atraumatic. No conjunctival icterus. Moist oral mucosa. Neck: Supple Lungs: Diminished to auscultation, no foreign sounds Heart: Normal S1-S2, no murmurs rubs or gallops Abdomen: Normoactive bowel sounds, no guarding rigidity or tenderness Extremities: No edema clubbing or cyanosis Neuro: Alert oriented 3, no focal deficits Skin: No skin lesions Internal Medicine: Result - Labs CBC & Chem 7: 01/25/18 06:02 01/25/18 06:02 Labs: Short CBC 01/25/18 Range/Units 06:02 WBC 6.8 (4.3-11.1) K/mcL Hgb 8.5 L (11.5-15.4) g/dL Hct 26.3 L (35.3-44.9) % Plt Count 273 (140-400) K/mcL Neutrophils # 4.5 (1.6-8.9) K/mcL BMP 01/25/18 06:02 Sodium 143 Potassium 4.4 Chloride 108 H Carbon Dioxide 27 BUN 13 Creatinine 0.66 Glucose 110 H Calcium 8.7 - VTE Documentation of Mechanical Device: Intermittent pneumatic compression device Consult Discharge Plan - Plan Additional Instructions: Discharge Instructions: Lumbar Please call [facility] ([phone]), your Primary Care Physician, or report to the ER if you have any of the following symptoms: Fever greater that 101.5, increased pain/redness/drainage/odor for your incision site or any other concerning symptoms. ACTIVITY * May Shower * No Tub Baths * No lifting greater than 10 pounds * No Smoking * No Swimming * No off Ground Activities (Running, Climbing, Ladders, Horseback Riding) * No Driving * Wear Back Brace when up walking if lumbar fusion done MEDICATIONS: Upon discharge resume your home medications. Take all the medications as prescribed. Take a stool softener if taking narcotic pain medications. Stool softeners are only effective if you drink enough fluids. Drink 6-8 glass of water or fluids a day, unless this is not allowed for another health problem. Despite using stool softeners, if you haven't had a bowel movement in 3 days, please switch to a gentle laxative. Gentle laxatives are sold over the counter. You should have a bowel movement within 24 hours, if not call the office. You will be discharged from the hospital with a prescription for pain medication. You are encouraged to decrease the use of narcotic pain medication as tolerated. Should you require a refill, please call the office. It is best to call 48-72 hours in advance of needing a prescription refill so you don't run out of medication. WOUND CARE: Remove Dressing Tomorrow. Leave incision open to air. Pat dry when you get out of the shower. FOLLOW-UP: Please follow up with your surgeon in the orthopedic clinic in 2 weeks from the day of surgery. References: [employer] ([email or web address]) Referrals: Ashvin Zambrano MD [Primary Care Provider] - Aman Acosta Jr, MD [Partnered Physician] -
--- NOTE | 2018-01-25 15:30 | Discharge Summary ---
- NOTES TO OUTPATIENT PROVIDER Notes to Outpatient Provider: Follow-up in 2 weeks in spine Center. Orders not resulted at time of discharge: Pending orders 01/20/18 XR fluoroscopy <1 hr [XR] Routine 01/23/18 17:04 EKG [ECG 12 lead ECG] [ECG] Stat Date of Encounter: 01/25/18 Time of Encounter: 15:27 - Discharge Diagnosis (1) Spondylolisthesis Priority: Primary Status: Chronic Qualifiers: Spinal region: lumbar Qualified Code(s): M43.16 - Spondylolisthesis, lumbar region - Hospital Course Hospital course: Ms. Douglas is a 77 year old female The patient had an uneventful postoperative course. Progressed from intravenous analgesic needs to oral analgesic needs only. Remained neurovascularly intact and mobilized satisfactorily. All intraoperative and/or postoperative radiographic studies were satisfactory. Patient is discharged with plan for rehabilitation and follow-up in 2 weeks post discharge on analgesic medication and patient's home medications. - Time Spent with Patient Total time spent providing and/or coordinating discharge services: - Discharge Medications Prescriptions: OxyCODONE Immed Rel [Roxicodone 5 MG] 5 mg PO Q4HR PRN 7 Days #30 tablet PRN Reason: Severe Pain Home Medications: Albuterol Sulfate [Albuterol Inhaler] 2 puff IH Q4HR PRN 01/20/18 [History] Aspirin 325 mg PO DAILY 01/20/18 [History] BuPROPion SR (12 HR) [Wellbutrin SR] 150 mg PO DAILY 01/20/18 [History] Calcium Carbonate/Vitamin D3 [Calcium 500 + Vit D Caplet] 1 tab PO TID 01/20/18 [History] Codeine/Butalbital/ASA/Caffein [Fiorinal with Codeine #3 Cap] 1 cap PO TID PRN 01/20/18 [History] Fluticasone Propionate Nasal [Flonase] 2 spr NS DAILY PRN 01/20/18 [History] HYDROcodone/Acet 5/325 mg [[place] 5-325 mg] 1 tab PO Q6H PRN 01/20/18 [History] Ibandronate Sodium [Boniva] 150 mg PO QMONTH 01/20/18 [History] Ipratropium [ATROVENT Inhaler] 2 puff IH BID 01/20/18 [History] Ipratropium/Albuterol Neb [Duoneb] 3 ml IH Q6HR PRN 01/20/18 [History] Montelukast [Singulair] 10 mg PO HS 01/20/18 [History] Multivitamin [One Daily Multivitamin] 1 tab PO DAILY 01/20/18 [History] Nabumetone [Relafen] 500 mg PO BID 01/20/18 [History] Pantoprazole Sodium [Protonix] 40 mg PO DAILY 01/20/18 [History] Sertraline [Zoloft] 100 mg PO DAILY 01/20/18 [History] OxyCODONE Immed Rel [Roxicodone 5 MG] 5 mg PO Q4HR PRN 7 Days #30 tablet [Rx] Allergies/Adverse Reactions: 3 Allergy/AdvReac Type Severity Reaction Status Date / Time No Known Allergies Allergy Verified 01/20/18 10:11 Date of admission: 01/20/18 16:05 Primary care physician: Ashvin Zambrano MD Consults: 01/20/18 16:33 Consult to Occupational Therapy [CONS] Routine Comment: Evaluate, develop and implement POC Reason for Consult: Postoperative rehabilitation Does patient have active BEDREST order?: No Is patient medically & hemodynamically stable?: Yes Patient assessed for mobility or mobilized this visit?: No Consult to Physical Therapy [CONS] Routine Comment: Evaluate, develop and implement POC Reason for Consult: Postoperative rehabilitation Does patient have active BEDREST order?: No Is patient medically & hemodynamically stable?: Yes Patient assessed for mobility or mobilized this visit?: No Consult to Clinical Dietician [CONS] Routine Reason for SW Consult: Postoperative rehabilitation Consult to Spine Navigator [CONS] [CONS] Routine 01/23/18 15:11 Consult to Hospitalist [CONS] Routine Consulting Provider: Hospitalist Curly Reason for Consult: hypoxia; CXR showing mild CHF - Dr. Acosta to call Call Completed: No - VTE Documentation of Mechanical Device: Graduated compression elastic hosiery Labs on day of discharge: Labs from last 24 hours 01/25/18 01/25/18 06:02 06:02 WBC 6.8 RBC 2.63 L Hgb 8.5 L Hct 26.3 L MCV 100.0 MCH 32.3 MCHC 32.3 RDW 14.4 Plt Count 273 MPV 9.2 L Immature Gran % 0.3 Seg Neutrophils % 65.4 Lymphocytes % 21.5 Monocytes % 8.5 Eosinophils % 3.7 Basophils % 0.6 Neutrophils # 4.5 Lymphocytes # 1.5 Monocytes # 0.6 Eosinophils # 0.3 Basophils # 0.0 Sodium 143 Potassium 4.4 Chloride 108 H Carbon Dioxide 27 BUN 13 Creatinine 0.66 Est GFR ( Amer) > 60 Est GFR (Non-Af Amer) > 60 BUN/Creatinine Ratio 20 Glucose 110 H Calculated Osmolality 297 Calcium 8.7 - Impressions ITS Impressions Lumbar Spine X-Ray 01/20/18 00:00 IMPRESSION: Postsurgical changes, through L5 we stabilization and reduction of the L3-4 spondylolisthesis. D/ / Willy Abreu MD / Willy Abreu MD Interpreting Provider: Willy Abreu MD Chest X-Ray 01/22/18 17:47 IMPRESSION: Trace bilateral pleural effusions and left basilar atelectasis. D/ / Shahida Herrera MD / Shahida Herrera MD Interpreting Provider: Shahida Herrera MD Chest X-Ray 01/23/18 07:35 IMPRESSION: Findings most compatible with mild interstitial pulmonary edema and mild pulmonary vascular congestion suggesting mild congestive heart failure and/or volume overload. D/ / Car Benavidez MD / Car Benavidez MD Interpreting Provider: Car Benavidez MD Lumbar Spine X-Ray 01/23/18 08:06 IMPRESSION: Status post L3-L5 posterior fusion with bilateral pedicle screws. Stable alignment. No hardware complications. No acute abnormalities are identified. D/ / 01/23/2018 15:22:53 Kai Ramos MD / monster Interpreting Provider: Kai Ramos MD Chest CTA 01/23/18 17:17 IMPRESSION: 1. No CT evidence of pulmonary embolism or aortic dissection. 2. Interstitial and alveolar parenchymal infiltrates in the posterior segment of bilateral upper lobe. Inflammatory or infectious process should be considered. 3. Chronic obstructive lung disease. 4. Bilateral pulmonary basilar atelectasis and bilateral small effusions. Pulmonary vascular congestion. D/ / Nevaeh Partida MD / Nevaeh Partida MD Interpreting Provider: Nevaeh Partida MD - Patient Status Disposition: Transfer SNF Condition: Good Functional capacity at discharge: uses cane/walker Overall status at discharge: patient is progressing back to baseline - Discharge Instructions Follow Up With: Ashvin Zambrano MD [Primary Care Provider] - Aman Acosta Jr, MD [Partnered Physician] - Additional Instructions: Discharge Instructions: Lumbar Please call [facility] ([phone]), your Primary Care Physician, or report to the ER if you have any of the following symptoms: Fever greater that 101.5, increased pain/redness/drainage/odor for your incision site or any other concerning symptoms. ACTIVITY * May Shower * No Tub Baths * No lifting greater than 10 pounds * No Smoking * No Swimming * No off Ground Activities (Running, Climbing, Ladders, Horseback Riding) * No Driving * Wear Back Brace when up walking if lumbar fusion done MEDICATIONS: Upon discharge resume your home medications. Take all the medications as prescribed. Take a stool softener if taking narcotic pain medications. Stool softeners are only effective if you drink enough fluids. Drink 6-8 glass of water or fluids a day, unless this is not allowed for another health problem. Despite using stool softeners, if you haven't had a bowel movement in 3 days, please switch to a gentle laxative. Gentle laxatives are sold over the counter. You should have a bowel movement within 24 hours, if not call the office. You will be discharged from the hospital with a prescription for pain medication. You are encouraged to decrease the use of narcotic pain medication as tolerated. Should you require a refill, please call the office. It is best to call 48-72 hours in advance of needing a prescription refill so you don't run out of medication. WOUND CARE: Remove Dressing Tomorrow. Leave incision open to air. Pat dry when you get out of the shower. FOLLOW-UP: Please follow up with your surgeon in the orthopedic clinic in 2 weeks from the day of surgery. References: [employer] ([email or web address]) - Diet and Activity Activity: as per physical therapy Diet: advance to your usual diet
--- NOTE | 2018-01-26 14:44 | Electrocardiograph Report ---
[place] [id number] Test Date: 2018-01-23 Pat Name: Opal Douglas Department: 114 Room: [facility] Gender: F Pediatrician Active Practice: : 1940 Requested By: Trudy Jasmine Order Number: [id number] Reading MD: Vania Otero Measurements Intervals [place] Rate: 100 P: 64 PA: 158 QRS: -44 QRSD: 92 T: 55 QT: 363 QTc: 420 Interpretive Statements SINUS TACHYCARDIA WITH OCCASIONAL SUPRAVENTRICULAR PREMATURE COMPLEXES LEFT AXIS DEVIATION NONSPECIFIC ST-WAVE ABNORMALITY Electronically Signed On 01-26-2018 14:42:59 EDT by Vania Otero
== END 2018-01-25 18:04 | DRG 459 ==
LOC: SAMDAY 09:05 → 3NENU 16:05
PROVIDERS: ADMIT Orthopaedic Surgery Orthopaedic Surgery of the Spine; ATTEND Orthopaedic Surgery Orthopaedic Surgery of the Spine

== ENCOUNTER 2019-07-30 14:47 | Inpatient (IN) ==
[2019-07-30] MEDS ORDERED: Naloxone 0.4 MG/ML INJ IVP PRN (17:35)
[2019-07-30] MEDS ORDERED: Ondansetron 4 MG/2 ML VIAL IVP PRN (17:35)
[2019-07-30] MEDS ORDERED: Ondansetron ODT 4 MG TAB.RAPDIS SL PRN (17:35)
[2019-07-30] MEDS ORDERED: Acetaminophen/Butalbital/CaffeineTABLET PO PRN (17:37)
[2019-07-30 18:56] LABS: Basophils # 0.1 K/mcL (0.0-0.2); Basophils % 1.1 %; Eosinophils # 0.2 K/mcL (0.0-0.6); Eosinophils % 3.5 %; Hematocrit 28.3 % (35.3-44.9); Hemoglobin 9.1 g/dL (11.5-15.4); Immature Granulocytes % 0.4 % (0-4); Lymphocytes # 1.1 K/mcL (0.6-4.6); Lymphocytes % 18.8 %; Mean Corpuscular HGB Conc 32.2 g/dL (31.6-35.5); Mean Corpuscular Hemoglobin 28.1 pg (28.0-33.3); Mean Corpuscular Volume 87.3 fL (83.0-100.0); Mean Platelet Volume 8.9 fL (9.4-12.4); Monocytes # 0.4 K/mcL (0.0-1.3); Monocytes % 7.6 %; Neutrophils # 3.9 K/mcL (1.6-8.9); Platelet Count 377 K/mcL (140-400); Red Blood Count 3.24 M/mcL (3.82-4.97); Red Cell Distribution Width 18.6 % (11.5-14.5); Segmented Neutrophils % 68.6 %; White Blood Count 5.7 K/mcL (4.3-11.1)
[2019-07-30 19:11] LABS: Alanine Aminotransferase 11 Units/L (7-52); Albumin 3.3 g/dL (3.5-5.7); Albumin/Globulin Ratio 1.3 (1.1-2.2); Alkaline Phosphatase 90 Units/L (34-104); Aspartate Amino Transferase 14 Units/L (13-39); BUN/Creatinine Ratio 11 (6-26); Bilirubin,Total 0.2 mg/dL (0.3-1.0); Blood Urea Nitrogen 6 mg/dL (8-23); Calcium 8.1 mg/dL (8.6-10.3); Carbon Dioxide 23 mEq/L (23-29); Chloride 105 mEq/L (98-107); Globulin 2.5 g/dL (2.4-3.5); Glucose 100 mg/dL (70-105); Osmolality,Calculated 280 (280-300); Potassium 4.2 mEq/L (3.5-5.1); Sodium 136 mEq/L (136-145); Total Protein 5.8 g/dL (6.4-8.9); Troponin I < 0.03 ng/mL (< 0.04); eGFR For African Americans > 60 (> 60); eGFR For Non-African Americans > 60 (> 60)
[2019-07-30] MEDS ORDERED: Furosemide 40 MG/4 ML VIAL IVP ONE (19:31)
[2019-07-30] MEDS: Ipratropium/Albuterol Neb 3 ML IH SCH ×2 (20:26→23:22)
[2019-07-30] MEDS ORDERED: NON-FORMULARY MEDICATION 1 EACH EACH (Calcium Carbonate/Vitamin D3 [Calcium 500 + Vit D Ca PO SCH (21:00)
[2019-07-30] MEDS: Gabapentin 300 MG CAPSULE PO SCH (22:46)
[2019-07-31] MEDS ORDERED: 0.9 % Sodium Chloride 1,000 ML IVC SCH (02:30)
[2019-07-31] MEDS: Ipratropium/Albuterol Neb 3 ML IH SCH ×6 (03:28→22:55)
[2019-07-31 03:31] LABS: ABG Base Excess 2 mEq/L (-2 to 3); ABG HCO3 25 mEq/L (21-27); ABG Oxygen Saturation 91 % (95-98); ABG PCO2 31 mmHg (35-45); ABG PH 7.51 pH Units (7.32-7.45); ABG PO2 54 mmHg (85-104); ABG TCO2 26 mEq/L (20-26)
[2019-07-31] MEDS ORDERED: Acetaminophen 325 MG TABLET PO ONE (04:17)
[2019-07-31] MEDS ORDERED: 0.9 % Sodium Chloride 500 ML IVC ONE (04:25)
[2019-07-31 04:56] LABS: Basophils % 0.6 %; Eosinophils # 0.1 K/mcL (0.0-0.6); Eosinophils % 1.1 %; Hematocrit 25.4 % (35.3-44.9); Hemoglobin 8.1 g/dL (11.5-15.4); Immature Granulocytes % 0.3 % (0-4); Lymphocytes # 0.6 K/mcL (0.6-4.6); Lymphocytes % 8.7 %; Mean Corpuscular HGB Conc 31.9 g/dL (31.6-35.5); Mean Corpuscular Volume 87.9 fL (83.0-100.0); Monocytes # 0.5 K/mcL (0.0-1.3); Monocytes % 7.2 %; Neutrophils # 5.3 K/mcL (1.6-8.9); Platelet Count 324 K/mcL (140-400); Red Blood Count 2.89 M/mcL (3.82-4.97); Red Cell Distribution Width 18.4 % (11.5-14.5); Segmented Neutrophils % 82.1 %; White Blood Count 6.4 K/mcL (4.3-11.1)
[2019-07-31 05:07] LABS: BUN/Creatinine Ratio 12 (6-26); Blood Urea Nitrogen 7 mg/dL (8-23); Calcium 7.9 mg/dL (8.6-10.3); Carbon Dioxide 23 mEq/L (23-29); Chloride 108 mEq/L (98-107); Glucose 124 mg/dL (70-105); Osmolality,Calculated 291 (280-300); Potassium 3.7 mEq/L (3.5-5.1); Sodium 141 mEq/L (136-145); eGFR For African Americans > 60 (> 60); eGFR For Non-African Americans > 60 (> 60)
[2019-07-31 08:18] LABS: Bilirubin,Urine Negative (Negative); Blood,Urine Negative (Negative); Clarity,Urine Clear (Clear); Color,Urine Yellow (Yellow); Glucose,Urine (UA) Normal (Normal); Ketones,Urine Negative (Negative); Leukocyte Esterase,Urine Negative (Negative); Nitrite,Urine Negative (Negative); Protein,Urine Negative (Neg-Trace); Specific Gravity,Urine 1.022 (1.010-1.025); Urobilinogen,Urine Normal (Normal)
[2019-07-31] MEDS: Gabapentin 300 MG CAPSULE PO SCH ×2 (08:55→20:15)
[2019-07-31] MEDS ORDERED: Cholecalciferol (D-3) 1,000 UNIT (25MCG) TABLET PO SCH (09:00)
[2019-07-31] MEDS ORDERED: cefTRIAXone 2,000 MG in Water for inj. (sterile) 20 ML IVP SCH (09:00)
[2019-07-31] MEDS ORDERED: Azithromycin 500 MG in 0.9 % Sodium Chloride 250 ML IVPB SCH (09:00)
[2019-07-31] MEDS ORDERED: BuPROPion SR (12 HR) 150 MG TABLET PO SCH (09:00)
[2019-07-31] MEDS ORDERED: Furosemide 40 MG/4 ML VIAL IVP ONE ×2 (09:25→16:42)
[2019-07-31] MEDS ORDERED: Furosemide 40 MG/4 ML VIAL ONE (10:09)
[2019-07-31] MEDS ORDERED: *HR* FentaNYL (PF) 100 MCG/2 ML VIAL ONE ×2 (13:44→14:52)
[2019-07-31] MEDS ORDERED: Ondansetron 4 MG/2 ML VIAL ONE (13:45)
[2019-07-31] MEDS ORDERED: Dexamethasone 4 MG/ML VIAL ONE (13:45)
[2019-07-31] MEDS ORDERED: *HR* Succinylcholine 200 MG/10 ML VIAL IVP ONE (13:45)
[2019-07-31] MEDS ORDERED: Lidocaine HCL 4 ML Topical Solution (Laryng-O-Jet Kit Sterile Pak) TP ONE (13:45)
[2019-07-31] MEDS ORDERED: Lidocaine -MPF 2% 2 ML VIAL ONE (13:50)
[2019-07-31] MEDS ORDERED: CeFAZolin Syr 2,000MG/20 ML 2,000 MG/20 ML SYRINGE IVPB ONE (14:07)
[2019-07-31] MEDS ORDERED: Acetaminophen IV 1,000 MG/100 ML INFUS..BTL ONE (14:10)
[2019-07-31] MEDS ORDERED: *HR* PHENYLEPHRINE 1,000 MCG/10 ML SYRINGE IVP ONE (14:36)
[2019-07-31] MEDS ORDERED: Albuterol 2.5 MG/3 ML NEBULIZER IH ONE (15:37)
[2019-07-31] MEDS ORDERED: Albuterol 2.5 MG/3 ML NEBULIZER ONE (15:38)
[2019-07-31] MEDS ORDERED: Acetaminophen/Butalbital/CaffeineTABLET PO PRN (16:42)
[2019-07-31] MEDS ORDERED: Ondansetron 4 MG/2 ML VIAL IVP PRN (16:42)
[2019-07-31] MEDS ORDERED: Naloxone 0.4 MG/ML INJ IVP PRN (16:42)
[2019-07-31] MEDS ORDERED: Ondansetron ODT 4 MG TAB.RAPDIS SL PRN (16:42)
[2019-07-31] MEDS ORDERED: Acetaminophen IV 1,000 MG/100 ML INFUS..BTL IVPB ONE (19:54)
[2019-08-01] MEDS ORDERED: Acetaminophen IV 1,000 MG/100 ML INFUS..BTL IVPB ONE (03:27)
[2019-08-01] MEDS: Ipratropium/Albuterol Neb 3 ML IH SCH ×6 (03:57→23:27)
[2019-08-01 06:23] LABS: Hematocrit 24.4 % (35.3-44.9); Hemoglobin 7.6 g/dL (11.5-15.4)
[2019-08-01 06:41] LABS: BUN/Creatinine Ratio 19 (6-26); Blood Urea Nitrogen 12 mg/dL (8-23); Calcium 7.8 mg/dL (8.6-10.3); Carbon Dioxide 26 mEq/L (23-29); Chloride 107 mEq/L (98-107); Glucose 157 mg/dL (70-105); Osmolality,Calculated 293 (280-300); Potassium 3.5 mEq/L (3.5-5.1); Sodium 140 mEq/L (136-145); eGFR For African Americans > 60 (> 60); eGFR For Non-African Americans > 60 (> 60)
[2019-08-01] MEDS ORDERED: Aspirin Enteric Coated 325 MG Tablet PO SCH (09:00)
[2019-08-01] MEDS: Cholecalciferol (D-3) 1,000 UNIT (25MCG) TABLET PO SCH (09:30)
[2019-08-01] MEDS: Gabapentin 300 MG CAPSULE PO SCH ×3 (09:31→20:21)
[2019-08-01] MEDS: BuPROPion SR (12 HR) 150 MG TABLET PO SCH (09:31)
[2019-08-01] MEDS: Furosemide 40 MG/4 ML VIAL IVP SCH ×2 (09:34→22:36)
[2019-08-01] MEDS: cefTRIAXone 2,000 MG in Water for inj. (sterile) 20 ML IVP SCH (09:45)
[2019-08-01] MEDS: Azithromycin 500 MG in 0.9 % Sodium Chloride 250 ML IVPB SCH (09:46)
[2019-08-01] MEDS: Iron Sucrose Complex 400 MG in 0.9 % Sodium Chloride 250 ML IVPB SCH (11:00)
[2019-08-01 11:30] LABS: Chol/HDL Ratio 2.7 (0-4.9)
[2019-08-01] MEDS: *HR* OxyCODONE Immed Rel 5 MG TABLET PO PRN (13:15)
[2019-08-01] MEDS ORDERED: 0.9 % Sodium Chloride 250 ML ONE (14:39)
[2019-08-01] MEDS ORDERED: traMADol 50 MG TABLET PO ONE (22:47)
[2019-08-02] MEDS: Ipratropium/Albuterol Neb 3 ML IH SCH ×5 (04:46→20:03)
[2019-08-02 05:49] LABS: Hematocrit 26.9 % (35.3-44.9); Hemoglobin 8.5 g/dL (11.5-15.4); Mean Corpuscular HGB Conc 31.6 g/dL (31.6-35.5); Mean Corpuscular Hemoglobin 27.4 pg (28.0-33.3); Mean Corpuscular Volume 86.8 fL (83.0-100.0); Mean Platelet Volume 9.5 fL (9.4-12.4); Platelet Count 303 K/mcL (140-400); Red Cell Distribution Width 18.8 % (11.5-14.5); White Blood Count 8.5 K/mcL (4.3-11.1)
[2019-08-02 06:36] LABS: BUN/Creatinine Ratio 17 (6-26); Blood Urea Nitrogen 10 mg/dL (8-23); Calcium 8.3 mg/dL (8.6-10.3); Carbon Dioxide 26 mEq/L (23-29); Chloride 104 mEq/L (98-107); Glucose 114 mg/dL (70-105); Osmolality,Calculated 288 (280-300); Potassium 4.7 mEq/L (3.5-5.1); Sodium 139 mEq/L (136-145); eGFR For African Americans > 60 (> 60); eGFR For Non-African Americans > 60 (> 60)
[2019-08-02] MEDS: Aspirin 81 MG TAB.CHEW PO SCH (08:41)
[2019-08-02] MEDS: Cholecalciferol (D-3) 1,000 UNIT (25MCG) TABLET PO SCH (08:41)
[2019-08-02] MEDS: *HR* OxyCODONE Immed Rel 5 MG TABLET PO PRN (08:41)
[2019-08-02] MEDS: BuPROPion SR (12 HR) 150 MG TABLET PO SCH (08:41)
[2019-08-02] MEDS: Gabapentin 300 MG CAPSULE PO SCH ×3 (08:42→21:35)
[2019-08-02] MEDS: Furosemide 40 MG/4 ML VIAL IVP SCH ×2 (08:43→21:33)
[2019-08-02] MEDS: Azithromycin 500 MG in 0.9 % Sodium Chloride 250 ML IVPB SCH (08:45)
[2019-08-02] MEDS: cefTRIAXone 2,000 MG in Water for inj. (sterile) 20 ML IVP SCH (08:48)
[2019-08-02] MEDS: Iron Sucrose Complex 400 MG in 0.9 % Sodium Chloride 250 ML IVPB SCH (11:50)
[2019-08-02] MEDS: Cefdinir 300 MG CAPSULE PO SCH ×2 (15:05→21:36)
[2019-08-02] MEDS ORDERED: Acetaminophen IV 1,000 MG/100 ML INFUS..BTL IVPB ONE (20:21)
[2019-08-03] MEDS: Ipratropium/Albuterol Neb 3 ML IH SCH ×5 (00:33→16:06)
[2019-08-03 05:12] LABS: Hematocrit 26.6 % (35.3-44.9); Hemoglobin 8.6 g/dL (11.5-15.4); Mean Corpuscular HGB Conc 32.3 g/dL (31.6-35.5); Mean Corpuscular Hemoglobin 28.1 pg (28.0-33.3); Mean Corpuscular Volume 86.9 fL (83.0-100.0); Mean Platelet Volume 9.5 fL (9.4-12.4); Platelet Count 300 K/mcL (140-400); Red Blood Count 3.06 M/mcL (3.82-4.97); Red Cell Distribution Width 18.8 % (11.5-14.5); White Blood Count 6.4 K/mcL (4.3-11.1)
[2019-08-03 05:28] LABS: BUN/Creatinine Ratio 17 (6-26); Blood Urea Nitrogen 8 mg/dL (8-23); Calcium 8.2 mg/dL (8.6-10.3); Carbon Dioxide 23 mEq/L (23-29); Chloride 107 mEq/L (98-107); Glucose 99 mg/dL (70-105); Osmolality,Calculated 286 (280-300); Potassium 3.9 mEq/L (3.5-5.1); Sodium 139 mEq/L (136-145); eGFR For African Americans > 60 (> 60); eGFR For Non-African Americans > 60 (> 60)
[2019-08-03] MEDS ORDERED: *HR* Enoxaparin 40 MG/0.4 ML SYRINGE SQ SCH (06:00)
[2019-08-03] MEDS: Cholecalciferol (D-3) 1,000 UNIT (25MCG) TABLET PO SCH (09:00)
[2019-08-03] MEDS ORDERED: Metoprolol XL (24 HR) Succ 25 MG TAB.ER.24H PO SCH (09:00)
[2019-08-03] MEDS: Gabapentin 300 MG CAPSULE PO SCH ×2 (09:00→16:14)
[2019-08-03] MEDS ORDERED: Azithromycin 250 MG TABLET PO SCH (09:00)
[2019-08-03] MEDS: BuPROPion SR (12 HR) 150 MG TABLET PO SCH (09:01)
[2019-08-03] MEDS: *HR* OxyCODONE Immed Rel 5 MG TABLET PO PRN ×2 (09:01→16:15)
[2019-08-03] MEDS: Cefdinir 300 MG CAPSULE PO SCH (09:01)
[2019-08-03] MEDS: Aspirin 81 MG TAB.CHEW PO SCH (09:01)
[2019-08-03] MEDS: Iron Sucrose Complex 400 MG in 0.9 % Sodium Chloride 250 ML IVPB SCH (09:02)
[2019-08-03] MEDS: Furosemide 40 MG/4 ML VIAL IVP SCH (09:02)
[2019-08-03 14:50] VITALS: BP 107/61
== END 2019-08-03 17:27 | DRG 480 ==
LOC: 3NENU 14:47 → EMEROOARM 14:47 → SUATTDRO 17:15 → 3NENU 18:02
PROVIDERS: ADMIT Family Medicine; ATTEND Internal Medicine

== ENCOUNTER 2020-11-09 00:02 | Inpatient (IN) ==
[2020-11-09 00:30] LABS: Basophils # 0.1 K/mcL (0.0-0.2); Basophils % 0.9 %; Eosinophils # 0.3 K/mcL (0.0-0.6); Eosinophils % 2.5 %; Hematocrit 33.5 % (35.3-44.9); Hemoglobin 9.8 g/dL (11.5-15.4); Immature Granulocytes % 0.3 % (0-4); Lymphocytes # 1.4 K/mcL (0.6-4.6); Mean Corpuscular HGB Conc 29.3 g/dL (31.6-35.5); Mean Corpuscular Volume 85.5 fL (83.0-100.0); Mean Platelet Volume 8.7 fL (9.4-12.4); Monocytes # 0.8 K/mcL (0.0-1.3); Monocytes % 7.6 %; Neutrophils # 7.9 K/mcL (1.6-8.9); Platelet Count 371 K/mcL (140-400); Red Blood Count 3.92 M/mcL (3.82-4.97); Red Cell Distribution Width 18.5 % (11.5-14.5); Segmented Neutrophils % 75.7 %; White Blood Count 10.5 K/mcL (4.3-11.1)
[2020-11-09 00:38] LABS: VBG HCO3 29 mEq/L (21-27); VBG PCO2 57 mmHg (41-51); VBG PH 7.31 pH Units (7.32-7.42); VBG PO2 43 mmHg (25-50)
[2020-11-09 01:08] LABS: BUN/Creatinine Ratio 7 (6-26); Blood Urea Nitrogen 5 mg/dL (8-23); Calcium 8.7 mg/dL (8.6-10.3); Carbon Dioxide 26 mEq/L (23-29); Chloride 100 mEq/L (98-107); Glucose 131 mg/dL (70-105); Osmolality,Calculated 281 (280-300); Potassium 3.6 mEq/L (3.5-5.1); Sodium 136 mEq/L (136-145); Troponin I < 0.03 ng/mL (< 0.04); eGFR For African Americans > 60 (> 60); eGFR For Non-African Americans > 60 (> 60)
[2020-11-09] MEDS ORDERED: methylPREDNISolone 125 MG/2 ML VIAL IVP ONE (01:45)
[2020-11-09] MEDS ORDERED: Ipratropium/Albuterol Neb 3 ML IH ONE (01:45)
[2020-11-09] MEDS ORDERED: Aspirin 81 MG TAB.CHEW PO ONE (02:25)
[2020-11-09] MEDS ORDERED: Ondansetron 4 MG/2 ML VIAL IVP PRN (04:26)
[2020-11-09] MEDS ORDERED: Acetaminophen 325 MG TABLET PO PRN (04:26)
[2020-11-09] MEDS ORDERED: Naloxone 0.4 MG/ML INJ IVP PRN (04:26)
[2020-11-09] MEDS ORDERED: Ipratropium/Albuterol Neb 3 ML IH PRN (06:00)
[2020-11-09 06:19] LABS: Prothrombin Time 11.7 Seconds (9.4-12.1)
[2020-11-09] MEDS: BuPROPion SR (12 HR) 150 MG TABLET PO SCH ×2 (06:46→17:54)
[2020-11-09] MEDS ORDERED: Perflutren Lipid Microsphere 1.3 ML in 0.9 % Sodium Chloride 8.7 ML IVP PRN (08:45)
[2020-11-09] MEDS: Metoprolol XL (24 HR) Succ 25 MG TAB.ER.24H PO SCH (09:06)
[2020-11-09] MEDS: Furosemide 20 MG/2 ML VIAL IVP SCH ×2 (09:10→21:47)
[2020-11-09] MEDS ORDERED: MethylPREDNISolone 40 MG/ML VIAL IVP SCH (12:00)
[2020-11-09] MEDS: *HR* Heparin 5,000 UNIT/ML VIAL SQ SCH ×2 (13:58→21:48)
[2020-11-09] MEDS: Gabapentin 300 MG CAPSULE PO SCH ×2 (13:58→21:48)
[2020-11-09] MEDS: *HR* HYDROcodone/Acet 5/325 mg TABLET PO PRN (19:51)
[2020-11-09] MEDS: Melatonin 3 MG TABLET PO PRN (21:48)
[2020-11-09] MEDS: diazePAM 10 MG TABLET PO SCH (21:48)
[2020-11-09] MEDS: rOPINIRole 0.25 MG TABLET PO SCH (21:48)
[2020-11-10] MEDS: *HR* Heparin 5,000 UNIT/ML VIAL SQ SCH ×3 (05:03→21:19)
[2020-11-10] MEDS: Gabapentin 300 MG CAPSULE PO SCH ×4 (05:03→21:19)
[2020-11-10] MEDS: BuPROPion SR (12 HR) 150 MG TABLET PO SCH ×2 (05:04→17:41)
[2020-11-10] MEDS: *HR* HYDROcodone/Acet 5/325 mg TABLET PO SCH ×2 (05:04→09:25)
[2020-11-10 06:21] LABS: Hematocrit 28.5 % (35.3-44.9); Hemoglobin 8.8 g/dL (11.5-15.4); Mean Corpuscular HGB Conc 30.9 g/dL (31.6-35.5); Mean Corpuscular Hemoglobin 25.9 pg (28.0-33.3); Mean Corpuscular Volume 83.8 fL (83.0-100.0); Mean Platelet Volume 9.4 fL (9.4-12.4); Platelet Count 354 K/mcL (140-400); Red Cell Distribution Width 18.2 % (11.5-14.5); White Blood Count 8.9 K/mcL (4.3-11.1)
[2020-11-10 06:48] LABS: Alanine Aminotransferase 7 Units/L (7-52); Albumin 3.3 g/dL (3.5-5.7); Albumin/Globulin Ratio 1.3 (1.1-2.2); Alkaline Phosphatase 87 Units/L (34-104); Aspartate Amino Transferase 12 Units/L (13-39); BUN/Creatinine Ratio 15 (6-26); Bilirubin,Total 0.3 mg/dL (0.3-1.0); Blood Urea Nitrogen 10 mg/dL (8-23); Calcium 8.2 mg/dL (8.6-10.3); Carbon Dioxide 27 mEq/L (23-29); Chloride 104 mEq/L (98-107); Globulin 2.5 g/dL (2.4-3.5); Glucose 116 mg/dL (70-105); Osmolality,Calculated 290 (280-300); Potassium 3.9 mEq/L (3.5-5.1); Sodium 140 mEq/L (136-145); Total Protein 5.8 g/dL (6.4-8.9); eGFR For African Americans > 60 (> 60); eGFR For Non-African Americans > 60 (> 60)
[2020-11-10] MEDS: predniSONE 20 MG TABLET PO SCH (08:56)
[2020-11-10] MEDS: Metoprolol XL (24 HR) Succ 25 MG TAB.ER.24H PO SCH (08:57)
[2020-11-10] MEDS: Furosemide 20 MG/2 ML VIAL IVP SCH ×2 (08:57→21:18)
[2020-11-10] MEDS: Aspirin 81 MG TAB.CHEW PO SCH (08:57)
[2020-11-10] MEDS ORDERED: Furosemide 40 MG TABLET PO SCH (09:00)
[2020-11-10] MEDS ORDERED: SODIUM CHLORIDE/NAHCO3/KCL/PEG 4,000 ML SOLN.RECON PO ONE (17:00)
[2020-11-10] MEDS: rOPINIRole 0.25 MG TABLET PO SCH (21:18)
[2020-11-10] MEDS: Melatonin 3 MG TABLET PO PRN (21:19)
[2020-11-10] MEDS: *HR* HYDROcodone/Acet 5/325 mg TABLET PO PRN (21:19)
[2020-11-10] MEDS: diazePAM 10 MG TABLET PO SCH (23:10)
[2020-11-11 04:27] LABS: Hematocrit 28.7 % (35.3-44.9); Hemoglobin 8.8 g/dL (11.5-15.4); Mean Corpuscular HGB Conc 30.7 g/dL (31.6-35.5); Mean Corpuscular Hemoglobin 25.7 pg (28.0-33.3); Mean Corpuscular Volume 83.9 fL (83.0-100.0); Mean Platelet Volume 8.8 fL (9.4-12.4); Platelet Count 345 K/mcL (140-400); Red Blood Count 3.42 M/mcL (3.82-4.97); Red Cell Distribution Width 18.6 % (11.5-14.5); White Blood Count 7.8 K/mcL (4.3-11.1)
[2020-11-11 04:49] LABS: Alanine Aminotransferase 7 Units/L (7-52); Albumin 3.3 g/dL (3.5-5.7); Albumin/Globulin Ratio 1.3 (1.1-2.2); Alkaline Phosphatase 79 Units/L (34-104); Aspartate Amino Transferase 10 Units/L (13-39); BUN/Creatinine Ratio 13 (6-26); Bilirubin,Total 0.2 mg/dL (0.3-1.0); Blood Urea Nitrogen 8 mg/dL (8-23); Calcium 7.9 mg/dL (8.6-10.3); Carbon Dioxide 26 mEq/L (23-29); Chloride 103 mEq/L (98-107); Globulin 2.5 g/dL (2.4-3.5); Glucose 97 mg/dL (70-105); Osmolality,Calculated 282 (280-300); Potassium 3.3 mEq/L (3.5-5.1); Sodium 137 mEq/L (136-145); Total Protein 5.8 g/dL (6.4-8.9); eGFR For African Americans > 60 (> 60); eGFR For Non-African Americans > 60 (> 60)
[2020-11-11] MEDS: *HR* Heparin 5,000 UNIT/ML VIAL SQ SCH ×3 (05:06→20:34)
[2020-11-11] MEDS: *HR* HYDROcodone/Acet 5/325 mg TABLET PO SCH (05:07)
[2020-11-11] MEDS: Gabapentin 300 MG CAPSULE PO SCH ×3 (05:07→20:33)
[2020-11-11] MEDS: BuPROPion SR (12 HR) 150 MG TABLET PO SCH ×2 (05:07→18:09)
[2020-11-11] MEDS ORDERED: Lidocaine -MPF 2% 2 ML VIAL ONE (08:54)
[2020-11-11] MEDS: Metoprolol XL (24 HR) Succ 25 MG TAB.ER.24H PO SCH ×2 (09:00→13:35)
[2020-11-11] MEDS: predniSONE 20 MG TABLET PO SCH ×2 (09:00→13:34)
[2020-11-11] MEDS: Furosemide 20 MG/2 ML VIAL IVP SCH ×3 (09:00→20:39)
[2020-11-11] MEDS: Aspirin 81 MG TAB.CHEW PO SCH ×2 (09:00→13:35)
[2020-11-11] MEDS ORDERED: Perflutren Lipid Microsphere 1.3 ML in 0.9 % Sodium Chloride 8.7 ML IVP PRN (17:11)
[2020-11-11] MEDS: rOPINIRole 0.25 MG TABLET PO SCH (20:34)
[2020-11-11] MEDS: diazePAM 10 MG TABLET PO SCH (20:34)
[2020-11-11] MEDS: *HR* HYDROcodone/Acet 5/325 mg TABLET PO PRN (20:34)
[2020-11-12 02:21] LABS: Hemoglobin 8.4 g/dL (11.5-15.4); Mean Corpuscular Hemoglobin 25.4 pg (28.0-33.3); Mean Corpuscular Volume 84.6 fL (83.0-100.0); Mean Platelet Volume 9.2 fL (9.4-12.4); Platelet Count 353 K/mcL (140-400); Red Blood Count 3.31 M/mcL (3.82-4.97); Red Cell Distribution Width 18.6 % (11.5-14.5); White Blood Count 7.5 K/mcL (4.3-11.1)
[2020-11-12 02:40] LABS: Alanine Aminotransferase 7 Units/L (7-52); Albumin 3.2 g/dL (3.5-5.7); Albumin/Globulin Ratio 1.4 (1.1-2.2); Alkaline Phosphatase 68 Units/L (34-104); Aspartate Amino Transferase 11 Units/L (13-39); BUN/Creatinine Ratio 18 (6-26); Bilirubin,Total 0.2 mg/dL (0.3-1.0); Blood Urea Nitrogen 11 mg/dL (8-23); Calcium 7.9 mg/dL (8.6-10.3); Carbon Dioxide 23 mEq/L (23-29); Chloride 108 mEq/L (98-107); Globulin 2.3 g/dL (2.4-3.5); Glucose 110 mg/dL (70-105); Osmolality,Calculated 288 (280-300); Sodium 139 mEq/L (136-145); Total Protein 5.5 g/dL (6.4-8.9); eGFR For African Americans > 60 (> 60); eGFR For Non-African Americans > 60 (> 60)
[2020-11-12] MEDS: *HR* Heparin 5,000 UNIT/ML VIAL SQ SCH ×3 (05:05→22:01)
[2020-11-12] MEDS: Gabapentin 300 MG CAPSULE PO SCH ×3 (05:06→22:00)
[2020-11-12] MEDS: *HR* HYDROcodone/Acet 5/325 mg TABLET PO SCH (05:06)
[2020-11-12] MEDS: BuPROPion SR (12 HR) 150 MG TABLET PO SCH (05:09)
[2020-11-12] MEDS: Aspirin 81 MG TAB.CHEW PO SCH (08:55)
[2020-11-12] MEDS: Furosemide 20 MG/2 ML VIAL IVP SCH ×2 (08:55→20:22)
[2020-11-12] MEDS: Metoprolol XL (24 HR) Succ 25 MG TAB.ER.24H PO SCH (08:55)
[2020-11-12] MEDS: predniSONE 20 MG TABLET PO SCH (08:55)
[2020-11-12] MEDS ORDERED: Isovue-370 500 ML BOTTLE IVP ONE ×2 (11:03→11:12)
[2020-11-12] MEDS: Azithromycin 500 MG in 0.9 % Sodium Chloride 250 ML IVPB SCH (18:18)
[2020-11-12] MEDS: diazePAM 10 MG TABLET PO SCH (20:22)
[2020-11-12] MEDS: rOPINIRole 0.25 MG TABLET PO SCH (23:00)
[2020-11-13 05:03] LABS: Hematocrit 28.6 % (35.3-44.9); Hemoglobin 8.4 g/dL (11.5-15.4); Mean Corpuscular HGB Conc 29.4 g/dL (31.6-35.5); Mean Corpuscular Hemoglobin 25.1 pg (28.0-33.3); Mean Corpuscular Volume 85.6 fL (83.0-100.0); Platelet Count 366 K/mcL (140-400); Red Blood Count 3.34 M/mcL (3.82-4.97); Red Cell Distribution Width 18.5 % (11.5-14.5); White Blood Count 7.8 K/mcL (4.3-11.1)
[2020-11-13 05:22] LABS: Alanine Aminotransferase 8 Units/L (7-52); Albumin 3.3 g/dL (3.5-5.7); Albumin/Globulin Ratio 1.4 (1.1-2.2); Alkaline Phosphatase 62 Units/L (34-104); Aspartate Amino Transferase 12 Units/L (13-39); BUN/Creatinine Ratio 21 (6-26); Bilirubin,Total 0.2 mg/dL (0.3-1.0); Blood Urea Nitrogen 15 mg/dL (8-23); Calcium 8.2 mg/dL (8.6-10.3); Carbon Dioxide 25 mEq/L (23-29); Chloride 109 mEq/L (98-107); Globulin 2.4 g/dL (2.4-3.5); Glucose 94 mg/dL (70-105); Osmolality,Calculated 293 (280-300); Potassium 3.7 mEq/L (3.5-5.1); Sodium 141 mEq/L (136-145); Total Protein 5.7 g/dL (6.4-8.9); eGFR For African Americans > 60 (> 60); eGFR For Non-African Americans > 60 (> 60)
[2020-11-13] MEDS: Gabapentin 300 MG CAPSULE PO SCH ×2 (05:53→14:50)
[2020-11-13] MEDS: *HR* HYDROcodone/Acet 5/325 mg TABLET PO SCH (05:53)
[2020-11-13] MEDS: *HR* Heparin 5,000 UNIT/ML VIAL SQ SCH ×2 (05:53→14:50)
[2020-11-13] MEDS: Aspirin 81 MG TAB.CHEW PO SCH (08:08)
[2020-11-13] MEDS: Metoprolol XL (24 HR) Succ 25 MG TAB.ER.24H PO SCH (08:09)
[2020-11-13] MEDS: Furosemide 20 MG/2 ML VIAL IVP SCH (08:09)
[2020-11-13] MEDS: predniSONE 20 MG TABLET PO SCH (08:09)
[2020-11-13] MEDS ORDERED: BuPROPion SR (12 HR) 150 MG TABLET PO SCH (09:00)
[2020-11-13 10:54] VITALS: BP 98/49
[2020-11-13] MEDS: Azithromycin 500 MG in 0.9 % Sodium Chloride 250 ML IVPB SCH (17:09)
== END 2020-11-13 18:21 | disposition home or self-care (01) | DRG 190 ==
LOC: EMEROOARM 00:02 → 3BNU 00:02 → SUATTDRO 04:37 → 3NENU 05:25 → 3BNU 05:29
PROVIDERS: ADMIT Internal Medicine; ATTEND Registered Nurse

== ENCOUNTER 2021-09-21 16:19 | Observation (INO) ==
[2021-09-21 20:35] LABS: Basophils # 0.1 K/mcL (0.0-0.2); Basophils % 0.5 %; Eosinophils % 0.1 %; Hematocrit 36.3 % (35.3-44.9); Hemoglobin 12.3 g/dL (11.5-15.4); Immature Granulocytes % 0.4 % (0-4); Lymphocytes # 1.4 K/mcL (0.6-4.6); Lymphocytes % 11.9 %; Mean Corpuscular HGB Conc 33.9 g/dL (31.6-35.5); Mean Corpuscular Hemoglobin 31.7 pg (28.0-33.3); Mean Corpuscular Volume 93.6 fL (83.0-100.0); Mean Platelet Volume 9.6 fL (9.4-12.4); Monocytes # 0.8 K/mcL (0.0-1.3); Monocytes % 6.6 %; Neutrophils # 9.7 K/mcL (1.6-8.9); Platelet Count 373 K/mcL (140-400); Red Blood Count 3.88 M/mcL (3.82-4.97); Red Cell Distribution Width 15.2 % (11.5-14.5); Segmented Neutrophils % 80.5 %; White Blood Count 12.1 K/mcL (4.3-11.1)
[2021-09-21 20:57] LABS: BUN/Creatinine Ratio 7 (6-26); Blood Urea Nitrogen 5 mg/dL (8-23); Calcium 9.4 mg/dL (8.6-10.3); Carbon Dioxide 29 mEq/L (23-29); Chloride 99 mEq/L (98-107); Glucose 112 mg/dL (70-105); Osmolality,Calculated 280 (280-300); Potassium 3.5 mEq/L (3.5-5.1); Sodium 136 mEq/L (136-145); eGFR For African Americans > 60 (> 60); eGFR For Non-African Americans > 60 (> 60)
[2021-09-21 20:58] LABS: Troponin I < 0.03 ng/mL (< 0.04)
[2021-09-21] MEDS: Aspirin 81 MG TAB.CHEW PO SCH (21:58)
[2021-09-21] MEDS ORDERED: Isovue-370 500 ML BOTTLE IVP ONE (23:43)
[2021-09-22] MEDS ORDERED: Ondansetron 4 MG/2 ML VIAL IVP PRN (04:07)
[2021-09-22] MEDS ORDERED: Naloxone 0.4 MG/ML INJ IVP PRN (04:07)
[2021-09-22 05:17] LABS: Hematocrit 30.8 % (35.3-44.9); Mean Corpuscular HGB Conc 30.5 g/dL (31.6-35.5); Mean Corpuscular Hemoglobin 28.7 pg (28.0-33.3); Mean Corpuscular Volume 94.2 fL (83.0-100.0); Mean Platelet Volume 9.3 fL (9.4-12.4); Platelet Count 291 K/mcL (140-400); Red Blood Count 3.27 M/mcL (3.82-4.97); Red Cell Distribution Width 15.1 % (11.5-14.5); White Blood Count 8.7 K/mcL (4.3-11.1)
[2021-09-22 05:19] LABS: Hemoglobin 9.4 g/dL (11.5-15.4)
[2021-09-22 05:26] LABS: BUN/Creatinine Ratio 9 (6-26); Blood Urea Nitrogen 6 mg/dL (8-23); Calcium 8.5 mg/dL (8.6-10.3); Carbon Dioxide 32 mEq/L (23-29); Chloride 101 mEq/L (98-107); Glucose 95 mg/dL (70-105); Osmolality,Calculated 283 (280-300); Potassium 3.7 mEq/L (3.5-5.1); Sodium 138 mEq/L (136-145); eGFR For African Americans > 60 (> 60); eGFR For Non-African Americans > 60 (> 60)
[2021-09-22 05:27] LABS: Chol/HDL Ratio 1.8 (0-4.9); Cholesterol 112 mg/dL (< 200); HDL Cholesterol 61 mg/dL (40-59); LDL Cholesterol,Calculated 41 mg/dL (< 100); Triglycerides 52 mg/dL (< 150); Troponin I < 0.03 ng/mL (< 0.04)
[2021-09-22] MEDS ORDERED: Perflutren Lipid Microsphere 1.3 ML in 0.9 % Sodium Chloride 8.7 ML IVP PRN (06:29)
[2021-09-22] MEDS ORDERED: Regadenoson 0.4 MG/5 ML SYRINGE IVP ONE (06:46)
[2021-09-22] MEDS: Aspirin 81 MG TAB.CHEW PO SCH (11:25)
[2021-09-22] MEDS ORDERED: Ipratropium 1 PUFF INHALER IH PRN (13:29)
[2021-09-22] MEDS: carvediloL 6.25 MG TABLET PO SCH (18:18)
[2021-09-23 08:19] LABS: Basophils % 0.5 %; Eosinophils # 0.1 K/mcL (0.0-0.6); Eosinophils % 1.5 %; Hematocrit 31.5 % (35.3-44.9); Hemoglobin 10.2 g/dL (11.5-15.4); Immature Granulocytes % 0.3 % (0-4); Lymphocytes # 1.3 K/mcL (0.6-4.6); Lymphocytes % 15.5 %; Mean Corpuscular HGB Conc 32.4 g/dL (31.6-35.5); Mean Corpuscular Hemoglobin 30.4 pg (28.0-33.3); Mean Corpuscular Volume 93.8 fL (83.0-100.0); Mean Platelet Volume 9.5 fL (9.4-12.4); Monocytes # 0.7 K/mcL (0.0-1.3); Neutrophils # 6.4 K/mcL (1.6-8.9); Platelet Count 327 K/mcL (140-400); Red Blood Count 3.36 M/mcL (3.82-4.97); Red Cell Distribution Width 15.5 % (11.5-14.5); Segmented Neutrophils % 74.2 %; White Blood Count 8.7 K/mcL (4.3-11.1)
[2021-09-23 08:40] LABS: BUN/Creatinine Ratio 17 (6-26); Blood Urea Nitrogen 12 mg/dL (8-23); Calcium 8.1 mg/dL (8.6-10.3); Carbon Dioxide 29 mEq/L (23-29); Chloride 105 mEq/L (98-107); Glucose 108 mg/dL (70-105); Osmolality,Calculated 292 (280-300); Potassium 3.4 mEq/L (3.5-5.1); Sodium 141 mEq/L (136-145); eGFR For African Americans > 60 (> 60); eGFR For Non-African Americans > 60 (> 60)
[2021-09-23] MEDS: Aspirin 81 MG TAB.CHEW PO SCH (09:22)
[2021-09-23] MEDS: carvediloL 6.25 MG TABLET PO SCH ×2 (09:22→17:46)
[2021-09-23] MEDS ORDERED: Nitroglycerin 0.4 MG TAB.SUBL SL PRN (10:41)
[2021-09-23] MEDS: lisinopriL 5 MG TABLET PO SCH (12:51)
[2021-09-23] MEDS: Isosorbide MONOnitrate (24 HR) 30 MG TAB.ER.24H PO SCH (12:51)
[2021-09-24 00:26] LABS: Bilirubin,Urine Negative (Negative); Blood,Urine Negative (Negative); Clarity,Urine Clear (Clear); Color,Urine Yellow (Yellow); Glucose,Urine (UA) Normal (Normal); Ketones,Urine 10 mg/dL (Negative); Leukocyte Esterase,Urine Large (Negative); Mucus,Urine Few per lpf (None-Few); Nitrite,Urine Negative (Negative); Protein,Urine 30 mg/dL (Neg-Trace); RBC,Urine 0-3 per hpf (0-3); Specific Gravity,Urine 1.028 (1.010-1.025); Squamous Epithelial Cell,Urine Few per hpf (None-Few); Urobilinogen,Urine Normal (Normal)
[2021-09-24 07:18] LABS: Basophils % 0.6 %; Eosinophils # 0.2 K/mcL (0.0-0.6); Eosinophils % 2.5 %; Immature Granulocytes % 0.3 % (0-4); Lymphocytes # 1.5 K/mcL (0.6-4.6); Lymphocytes % 22.4 %; Mean Corpuscular Volume 93.5 fL (83.0-100.0); Mean Platelet Volume 9.3 fL (9.4-12.4); Monocytes # 0.4 K/mcL (0.0-1.3); Monocytes % 6.3 %; Neutrophils # 4.6 K/mcL (1.6-8.9); Platelet Count 326 K/mcL (140-400); Red Cell Distribution Width 15.7 % (11.5-14.5); Segmented Neutrophils % 67.9 %; White Blood Count 6.8 K/mcL (4.3-11.1)
[2021-09-24] MEDS ORDERED: cefTRIAXone 2,000 MG in 0.9 % Sodium Chloride Mini Bag 100 ML IVPB ONE (07:32)
[2021-09-24 07:35] LABS: BUN/Creatinine Ratio 26 (6-26); Blood Urea Nitrogen 16 mg/dL (8-23); Calcium 7.8 mg/dL (8.6-10.3); Carbon Dioxide 30 mEq/L (23-29); Chloride 106 mEq/L (98-107); Glucose 100 mg/dL (70-105); Osmolality,Calculated 293 (280-300); Potassium 3.4 mEq/L (3.5-5.1); Sodium 141 mEq/L (136-145); eGFR For African Americans > 60 (> 60); eGFR For Non-African Americans > 60 (> 60)
[2021-09-24] MEDS: lisinopriL 5 MG TABLET PO SCH (09:12)
[2021-09-24] MEDS: Aspirin 81 MG TAB.CHEW PO SCH (09:12)
[2021-09-24] MEDS: Isosorbide MONOnitrate (24 HR) 30 MG TAB.ER.24H PO SCH (09:12)
[2021-09-24] MEDS: carvediloL 6.25 MG TABLET PO SCH ×2 (09:13→16:35)
[2021-09-24] MEDS ORDERED: diazePAM 10 MG TABLET PO PRN (10:10)
[2021-09-24] MEDS ORDERED: BuPROPion SR (12 HR) 150 MG TABLET PO SCH (10:15)
[2021-09-24 15:20] VITALS: BP 105/64; PULSE 90; TEMP 98.2; O2SAT 94
[2021-09-24] MEDS ORDERED: rOPINIRole 1 MG TABLET PO SCH (23:00)
[2021-09-25] MEDS ORDERED: Metoprolol XL (24 HR) Succ 25 MG TAB.ER.24H PO SCH (09:00)
[2021-09-25] MEDS ORDERED: Furosemide 40 MG TABLET PO SCH (09:00)
[2021-09-25] MEDS ORDERED: cefTRIAXone 1,000 MG in 0.9 % Sodium Chloride Mini Bag 100 ML IVPB SCH (09:00)
== END 2021-09-24 17:19 | disposition home or self-care (01) ==
LOC: EMEROOARM 16:19 → 3BNU 16:19
PROVIDERS: ADMIT Internal Medicine; ATTEND Internal Medicine